=== PATIENT | female | born 1950 | race Caucasian/White ===

== ENCOUNTER 2017-02-01 14:07 | Inpatient (IN) ==
--- NOTE | 2017-02-01 14:10 | Emergency Department Note ---
Disposition Clinical Impression: Hypoxia, Abnormal EKG, NSTEMI (non-ST elevated myocardial infarction) Disposition: Admitted As Inpatient Referrals: Ivan Bruno DO [Primary Care Provider] - Forms: ED Satisfaction Letter General Adult HPI - General Chief complaint: ED Shortness of Breath/Dyspnea Stated complaint: SOB/syncope Time Seen by Provider: 02/01/17 14:09 - Related Data Home Medications Medication Instructions Recorded Confirmed Atorvastatin 02/01/17 Citalopram 02/01/17 Diclofenac Sodium 02/01/17 Gabapentin 02/01/17 02/01/17 Gemfibrozil 02/01/17 Triamterene-Hctz 50-25 mg Cap 02/01/17 Valsartan 02/01/17 Allergies Allergy/AdvReac Type Severity Reaction Status Date / Time acetaminophen [From [place]] Allergy Hallucinati Verified 02/01/17 13:11 ng hydrocodone [From [place]] Allergy Hallucinati Verified 02/01/17 13:11 ng Course Vital Signs Temperature 98.7 F 02/01/17 14:09 Pulse Rate 72 02/01/17 14:09 Respiratory Rate 18 02/01/17 14:09 Blood Pressure 205/119 02/01/17 14:09 O2 Sat by Pulse Oximetry 78 02/01/17 14:09 Temperature 98.7 F 02/01/17 14:09 Pulse Rate 59 02/01/17 15:59 Respiratory Rate 16 02/01/17 15:59 Blood Pressure 170/92 02/01/17 15:59 O2 Sat by Pulse Oximetry 93 02/01/17 15:59 Oxygen Delivery Oxygen Delivery Nasal Cannula Medical Decision Making - Lab Data Result diagrams: 02/01/17 14:32 02/01/17 14:32 Lab Results 02/01/17 02/01/17 02/01/17 Range/Units 14:32 14:32 14:32 WBC 8.6 (4.3-11.1) K/mcL RBC 5.76 H (3.82-4.97) M/mcL Hgb 16.9 H (11.5-15.4) g/dL Hct 51.4 H (35.3-44.9) % MCV 89.2 (83.0-100.0) fL MCH 29.3 (28.0-33.3) pg MCHC 32.9 (31.6-35.5) g/dL RDW 14.5 (11.5-14.5) % Plt Count 201 (140-400) K/mcL MPV 10.9 (9.4-12.4) fL Immature Gran % 0.2 (0-4) % Seg Neutrophils % 68.4 % Lymphocytes % 22.2 % Monocytes % 5.6 % Eosinophils % 3.0 % Basophils % 0.6 % Neutrophils # 5.9 (1.6-8.9) K/mcL Lymphocytes # 1.9 (0.6-4.6) K/mcL Monocytes # 0.5 (0.0-1.3) K/mcL Eosinophils # 0.3 (0.0-0.6) K/mcL Basophils # 0.1 (0.0-0.2) K/mcL PT (9.4-12.1) Seconds INR APTT (26.0-36.0) Seconds ABG pH (7.32-7.45) pH Units ABG pCO2 (35-45) mmHg ABG pO2 (85-104) mmHg ABG HCO3 (21-27) mEQ/L ABG Total CO2 (20-26) mEq/L ABG O2 Saturation (95-98) % ABG Base Excess (-2.0 to 3.0) mEq/L Liter Flow L/MIN Blood Gas Modality Sodium 146 H (136-145) mEq/L Potassium 3.1 L (3.5-4.5) mEq/L Chloride 107 (98-109) mEq/L Carbon Dioxide 28 (19-29) mEq/L BUN 19 (7-20) mg/dL Creatinine 0.77 (0.57-1.11) mg/dL Est GFR ( Amer) > 60 (> 60) Est GFR (Non-Af Amer) > 60 (> 60) BUN/Creatinine Ratio 25 (6-26) Glucose 112 H (70-99) mg/dL Calculated Osmolality 305 H (280-300) Calcium 9.0 (8.6-10.8) mg/dL Magnesium 1.7 (1.6-2.6) mg/dL Total Bilirubin 3.9 H (0.2-1.2) mg/dL Direct Bilirubin 1.0 H (0.0-0.5) mg/dL Indirect Bilirubin 2.9 H (0.0-1.2) mg/dL AST 16 (5-34) Units/L ALT 13 (0-55) Units/L Alkaline Phosphatase 70 (38-126) Units/L Troponin I 0.42 H* (0-0.03) ng/mL B-Natriuretic Peptide (0-100) pg/mL Serum Total Protein 6.6 (6.0-8.3) g/dL Albumin 3.7 (3.5-5.0) g/dL Globulin 2.9 (2.4-3.5) g/dL Albumin/Globulin Ratio 1.3 (1.1-2.2) Urine Color (Yellow) Urine Clarity (Clear) Urine pH (5.0-8.0) pH Units Ur Specific [place] (1.010-1.025) Urine Protein (Neg-Trace) mg/dL Urine Glucose (UA) (Normal) mg/dL Urine Ketones (Negative) mg/dL Urine Blood (Negative) Urine Nitrite (Negative) Urine Bilirubin (Negative) Urine Urobilinogen (Normal) mg/dL Ur Leukocyte Esterase (Negative) Urine Microscopic RBC (0-3) per hpf Urine Microscopic WBC (0-3) per hpf Ur Squamous Epith Cells (None-Few) per lpf Urine Bacteria (None-Few) per hpf Hyaline Casts (None-Few) per lpf 02/01/17 02/01/17 02/01/17 Range/Units 14:32 14:32 14:41 WBC (4.3-11.1) K/mcL RBC (3.82-4.97) M/mcL Hgb (11.5-15.4) g/dL Hct (35.3-44.9) % MCV (83.0-100.0) fL MCH (28.0-33.3) pg MCHC (31.6-35.5) g/dL RDW (11.5-14.5) % Plt Count (140-400) K/mcL MPV (9.4-12.4) fL Immature Gran % (0-4) % Seg Neutrophils % % Lymphocytes % % Monocytes % % Eosinophils % % Basophils % % Neutrophils # (1.6-8.9) K/mcL Lymphocytes # (0.6-4.6) K/mcL Monocytes # (0.0-1.3) K/mcL Eosinophils # (0.0-0.6) K/mcL Basophils # (0.0-0.2) K/mcL PT 13.0 H (9.4-12.1) Seconds INR 1.2 APTT 27.8 (26.0-36.0) Seconds ABG pH (7.32-7.45) pH Units ABG pCO2 (35-45) mmHg ABG pO2 (85-104) mmHg ABG HCO3 (21-27) mEQ/L ABG Total CO2 (20-26) mEq/L ABG O2 Saturation (95-98) % ABG Base Excess (-2.0 to 3.0) mEq/L Liter Flow L/MIN Blood Gas Modality Sodium (136-145) mEq/L Potassium (3.5-4.5) mEq/L Chloride (98-109) mEq/L Carbon Dioxide (19-29) mEq/L BUN (7-20) mg/dL Creatinine (0.57-1.11) mg/dL Est GFR ( Amer) (> 60) Est GFR (Non-Af Amer) (> 60) BUN/Creatinine Ratio (6-26) Glucose (70-99) mg/dL Calculated Osmolality (280-300) Calcium (8.6-10.8) mg/dL Magnesium (1.6-2.6) mg/dL Total Bilirubin (0.2-1.2) mg/dL Direct Bilirubin (0.0-0.5) mg/dL Indirect Bilirubin (0.0-1.2) mg/dL AST (5-34) Units/L ALT (0-55) Units/L Alkaline Phosphatase (38-126) Units/L Troponin I (0-0.03) ng/mL B-Natriuretic Peptide 305 H (0-100) pg/mL Serum Total Protein (6.0-8.3) g/dL Albumin (3.5-5.0) g/dL Globulin (2.4-3.5) g/dL Albumin/Globulin Ratio (1.1-2.2) Urine Color [place] A (Yellow) Urine Clarity Clear (Clear) Urine pH 5.5 (5.0-8.0) pH Units Ur Specific [place] > 1.030 H (1.010-1.025) Urine Protein >=300 H (Neg-Trace) mg/dL Urine Glucose (UA) Normal (Normal) mg/dL Urine Ketones 15 H (Negative) mg/dL Urine Blood Negative (Negative) Urine Nitrite Negative (Negative) Urine Bilirubin Moderate H (Negative) Urine Urobilinogen 2.0 H (Normal) mg/dL Ur Leukocyte Esterase Trace H (Negative) Urine Microscopic RBC 3-5 H (0-3) per hpf Urine Microscopic WBC 0-3 (0-3) per hpf Ur Squamous Epith Cells Many H (None-Few) per lpf Urine Bacteria None Seen (None-Few) per hpf Hyaline Casts None Seen (None-Few) per lpf 02/01/17 Range/Units 14:58 WBC (4.3-11.1) K/mcL RBC (3.82-4.97) M/mcL Hgb (11.5-15.4) g/dL Hct (35.3-44.9) % MCV (83.0-100.0) fL MCH (28.0-33.3) pg MCHC (31.6-35.5) g/dL RDW (11.5-14.5) % Plt Count (140-400) K/mcL MPV (9.4-12.4) fL Immature Gran % (0-4) % Seg Neutrophils % % Lymphocytes % % Monocytes % % Eosinophils % % Basophils % % Neutrophils # (1.6-8.9) K/mcL Lymphocytes # (0.6-4.6) K/mcL Monocytes # (0.0-1.3) K/mcL Eosinophils # (0.0-0.6) K/mcL Basophils # (0.0-0.2) K/mcL PT (9.4-12.1) Seconds INR APTT (26.0-36.0) Seconds ABG pH 7.45 (7.32-7.45) pH Units ABG pCO2 41 (35-45) mmHg ABG pO2 57 L (85-104) mmHg ABG HCO3 28.5 H (21-27) mEQ/L ABG Total CO2 29.8 H (20-26) mEq/L ABG O2 Saturation 91 L (95-98) % ABG Base Excess 4.1 H (-2.0 to 3.0) mEq/L Liter Flow 3 L/MIN Blood Gas Modality [place] Sodium (136-145) mEq/L Potassium (3.5-4.5) mEq/L Chloride (98-109) mEq/L Carbon Dioxide (19-29) mEq/L BUN (7-20) mg/dL Creatinine (0.57-1.11) mg/dL Est GFR ( Amer) (> 60) Est GFR (Non-Af Amer) (> 60) BUN/Creatinine Ratio (6-26) Glucose (70-99) mg/dL Calculated Osmolality (280-300) Calcium (8.6-10.8) mg/dL Magnesium (1.6-2.6) mg/dL Total Bilirubin (0.2-1.2) mg/dL Direct Bilirubin (0.0-0.5) mg/dL Indirect Bilirubin (0.0-1.2) mg/dL AST (5-34) Units/L ALT (0-55) Units/L Alkaline Phosphatase (38-126) Units/L Troponin I (0-0.03) ng/mL B-Natriuretic Peptide (0-100) pg/mL Serum Total Protein (6.0-8.3) g/dL Albumin (3.5-5.0) g/dL Globulin (2.4-3.5) g/dL Albumin/Globulin Ratio (1.1-2.2) Urine Color (Yellow) Urine Clarity (Clear) Urine pH (5.0-8.0) pH Units Ur Specific [place] (1.010-1.025) Urine Protein (Neg-Trace) mg/dL Urine Glucose (UA) (Normal) mg/dL Urine Ketones (Negative) mg/dL Urine Blood (Negative) Urine Nitrite (Negative) Urine Bilirubin (Negative) Urine Urobilinogen (Normal) mg/dL Ur Leukocyte Esterase (Negative) Urine Microscopic RBC (0-3) per hpf Urine Microscopic WBC (0-3) per hpf Ur Squamous Epith Cells (None-Few) per lpf Urine Bacteria (None-Few) per hpf Hyaline Casts (None-Few) per lpf Critical Care Time Critical Care Time: Yes Total Critical Care Time: 45 Attestation: Patient presented hypoxic. Critical care time involved ABG and lab interpretation. CT of chest. Initiation of IV heparin therapy. Admission to the medicine service. Attestation Statement - Attestation Attestation: I examined this patient and my medical decision-making was reviewed with the UNDERWATER ROBOTICIST/PA/Advanced Practice Nurse/Resident Physician. I agree with the documented findings, disposition and treatment plan as described except to the extent set forth below. [id number] time provided in conjunction with Dr. Moffett Patient arrives as a transfer from the urgent care with complaints of dyspnea. Pulse ox was 80% on room air at the urgent care. The patient appears generally weak on exam
--- NOTE | 2017-02-01 14:26 | Emergency Department Note ---
Disposition Clinical Impression: Hypoxia, Abnormal EKG, NSTEMI (non-ST elevated myocardial infarction) Pulmonary embolism Qualifiers: Pulmonary embolism type: other Chronicity: unspecified Acute cor pulmonale presence: without acute cor pulmonale Qualified Code(s): I26.99 - Other pulmonary embolism without acute cor pulmonale Disposition: Admitted As Inpatient Condition: Fair SOB HPI - General Chief Complaint: ED Shortness of Breath/Dyspnea Stated Complaint: SOB/syncope Time Seen by Provider: 02/01/17 14:09 Source: patient, EMS Mode of arrival: ambulatory Limitations: no limitations Nursing Notes Reviewed: Yes Vital Signs Reviewed: Yes - History of Present Illness 66-year-old female history of hypertension diabetes presents for evaluation of dyspnea from the urgent care. Patient has a history of the recent week of falling. This was an unwitnessed fall. Patient states that she tripped however family was concerned that she possibly passed out and had a syncopal episode. Patient does live with her son. Patient presented to urgent care prior to arrival with a granddaughter for concerns of a possible syncopal episode. At the urgent care the patient was found to be hypoxic with room air saturation in the 80s responded to oxygen. Patient states he does not wear oxygen at home. Patient denies any dyspnea or chest pain. No fevers. No cough. Patient denies any abdominal pain or nausea or vomiting. Patient does state that she has bilateral leg pains which are chronic. Denies any history of strokes. Reports that she has a history of blood pressure as well as diabetes. Daughter at bedside states that she feels that she does have slurred speech. No focal neurologic deficits. Patient's last known well was last week prior to when she fell. - Related Data Home Medications Medication Instructions Recorded Confirmed Atorvastatin Calcium [Lipitor] 20 mg PO DAILY 02/01/17 02/01/17 Diclofenac Sodium (24 HR) 100 mg PO DAILY 02/01/17 02/01/17 [Voltaren XR] Escitalopram [Lexapro] 10 mg PO BID 02/01/17 02/01/17 Fentanyl [Fentanyl] 1 patch TP Q72H 02/01/17 02/01/17 Gabapentin [Neurontin] 600 mg PO TID 02/01/17 02/01/17 Gemfibrozil [Lopid] 600 mg PO BID 02/01/17 02/01/17 GlyBURIDE [GlyBURIDE] 5 mg PO BID 02/01/17 02/01/17 Saxagliptin HCl/Metformin HCl 1 tab PO DAILY 02/01/17 02/01/17 [Kombiglyze Xr 2.5-1,000 mg Tab] Triamterene/Hydrochlorothiazid 1 tab PO QAM 02/01/17 02/01/17 [Triamterene-Hctz 75-50 mg Tab] Valsartan [Diovan] 160 mg PO DAILY 02/01/17 02/01/17 Allergies Allergy/AdvReac Type Severity Reaction Status Date / Time acetaminophen [From [place]] Allergy Hallucinati Verified 02/01/17 13:11 ng hydrocodone [From [place]] Allergy Hallucinati Verified 02/01/17 13:11 ng All systems ED: reviewed and negative except as stated. Constitutional: Reports: as per HPI. Denies: fever Eyes: Reports: as per HPI ENT ED: Reports: as per HPI Cardiovascular: Reports: as per HPI. Denies: chest pain Respiratory: Reports: as per HPI. Denies: cough, dyspnea Gastrointestinal: Reports: as per HPI. Denies: abdominal pain, nausea, vomiting Genitourinary: Reports: as per HPI Musculoskeletal: Reports: as per HPI Integumentary: Reports: as per HPI Neurological: Reports: as per HPI Psychiatric: Reports: as per HPI Past Medical History - Past Medical History Medical history: Reports: diabetes, hypertension, other Psychiatric history: Reports: anxiety, depression [employer] history: Reports: bilateral tubal ligation - Social History Smoking Status: Former smoker Alcohol use: Reports: none Drug use: Reports: none Physical Exam - General Limitations: no limitations General appearance: alert - Head Head exam: atraumatic, normocephalic, normal inspection - Eye Eye exam: Present: normal appearance, PERRL, EOMI - ENT ENT exam: normal exam, mucous membranes moist, other (Perioral cyanosis) - Neck Neck exam: Present: normal inspection, trachea midline - Chest Chest inspection: Present: normal inspection, symmetric chest wall rise - Respiratory Respiratory exam: Present: other (Diffusely diminished without rails crackles or rhonchi). Absent: respiratory distress, accessory muscle use - Cardiovascular Cardiovascular exam: Present: regular rate, normal rhythm. Absent: systolic murmur - Abdominal Exam Abdominal exam: Present: soft, Non-Tender - Extremities Exam Extremities exam: Present: normal inspection, pedal edema (1+ pedal edema bilaterally) - Expanded Lower Extremity Exam Neurovascular/Tendon exam: Present: normal capillary refill - Back Exam Back exam: Present: normal inspection. Absent: CVA tenderness (R), CVA tenderness (L) - Neurological Exam Neurological exam: Present: alert, oriented X3, CN II-XII intact - Expanded Neurological Exam Patient oriented to: Present: person, place, time Speech: Present: fluid speech Cranial nerves: EOM function (II, III, IV, ): Normal, facial sensation (V): Normal, facial palsy (VII): Normal, spinal accessory function (XI): Normal, tongue deviation (XII): Normal Motor strength - LUE: 5/5 Motor strength - RUE: 5/5 Motor strength - LLE: 5/5 Motor strength - RLE: 5/5 Coma Scale Eye Opening: Spontaneous Coma Scale Motor Response: Obeys Commands Coma Scale Verbal Response: Oriented Coma Scale Total: 15 - Skin Skin exam: Present: warm, dry, intact, normal color Course Course Narrative: Patient seen and examined upon EMS arrival. Patient's vitals are stable with supplemental oxygen. Patient does not appear to be in any acute respiratory distress. Not tachypnea. Patient did have room air oxygen saturation of 78%. Patient does have some perioral cyanosis without significantly diminished lung exam. Patient's EKG from the outlying urgent care shows sinus with a normal rate with T-wave inversions in leads 3 aVF and V1 V2 and V3 with no ST elevation. Concerns for cardiopulmonary etiology. She will get a cardiopulmonary evaluation concerns for PE. Patient with a CTA of the chest as well as a cardiac evaluation with EKG and troponin. Patient had basic lab work. Also CT of the head as she did have a possible single episode with no notable slurred speech by family. - Reevaluation(s) Reevaluation #1: It was noted the patient did have 50mcg fentanyl patches x 2 on her buttock. Those were removed. Time: 14:56 Reevaluation #2: Patient troponin came back elevated. Patient doesn't have chest pain. Treated with Given ASA. Patient blood pressure will be treated with nitroglycerin. Time: 15:04 Reevaluation #3: Seen and reevaluated. Patient continues to deny any chest pain. Patient was given 1 sublingual nitroglycerin to help reduce her blood pressure. Patient's blood pressure responded. Extensive conversation with the patient as well as family at bedside outlining the plan of care. Time: 16:10 - Consultations Consultation #1: Spoke with cardiology who agreed with plan of care with the addition of adding Brilinta. Time: 17:09 Vital Signs Temperature 98.7 F 02/01/17 14:09 Pulse Rate 72 02/01/17 14:09 Respiratory Rate 18 02/01/17 14:09 Blood Pressure 205/119 02/01/17 14:09 O2 Sat by Pulse Oximetry 78 02/01/17 14:09 Temperature 98.7 F 02/01/17 14:09 Pulse Rate 59 02/01/17 15:59 Respiratory Rate 18 02/01/17 16:47 Blood Pressure 169/102 02/01/17 16:47 O2 Sat by Pulse Oximetry 93 02/01/17 15:59 Oxygen Delivery Oxygen Delivery Nasal Cannula Shortness of Breath/Dyspnea - MDM Narrative Medical decision making narrative: 66-year-old female presents for evaluation from the urgent care. Patient denies any cardiac history but has known history of hypertension diabetes. Patient had an unwitnessed fall week ago possible syncope. Daughter was concerned and brought the patient to urgent care today. Urgent care found the patient to be hypoxic with EKG changes. These changes were verified with our EKG upon arrival. Patient has T-wave inversions in leads V1 through 3 as well as inferior 3 and aVF with isolated ST elevation in aVL. Patient is not complaining of any chest pain. Patient troponin came back elevated. Patient was given aspirin and heparinized. This was also discussed with the linoleum mechanic who stated that we could possibly add Brilinta. The patient responded to supplement oxygen. Patient also had a CT of the chest concerns for PE. Patient's CTA shows a suspected subsegmental right middle lobe PE. Patient's heparin was changed to standard dose heparin. Patient's blood pressure was addressed with nitroglycerin and responded. Patient's head CT shows no acute changes. Patient was neurovascularly intact. Had a lengthy discussion with the patient as well as family at bedside and outlined a plan of care. - Lab Data Lab results reviewed: Yes I reviewed the patient's lab results. Result diagrams: 02/01/17 14:32 02/01/17 14:32 Lab Results 02/01/17 02/01/17 02/01/17 Range/Units 14:32 14:32 14:32 WBC 8.6 (4.3-11.1) K/mcL RBC 5.76 H (3.82-4.97) M/mcL Hgb 16.9 H (11.5-15.4) g/dL Hct 51.4 H (35.3-44.9) % MCV 89.2 (83.0-100.0) fL MCH 29.3 (28.0-33.3) pg MCHC 32.9 (31.6-35.5) g/dL RDW 14.5 (11.5-14.5) % Plt Count 201 (140-400) K/mcL MPV 10.9 (9.4-12.4) fL Immature Gran % 0.2 (0-4) % Seg Neutrophils % 68.4 % Lymphocytes % 22.2 % Monocytes % 5.6 % Eosinophils % 3.0 % Basophils % 0.6 % Neutrophils # 5.9 (1.6-8.9) K/mcL Lymphocytes # 1.9 (0.6-4.6) K/mcL Monocytes # 0.5 (0.0-1.3) K/mcL Eosinophils # 0.3 (0.0-0.6) K/mcL Basophils # 0.1 (0.0-0.2) K/mcL PT (9.4-12.1) Seconds INR APTT (26.0-36.0) Seconds ABG pH (7.32-7.45) pH Units ABG pCO2 (35-45) mmHg ABG pO2 (85-104) mmHg ABG HCO3 (21-27) mEQ/L ABG Total CO2 (20-26) mEq/L ABG O2 Saturation (95-98) % ABG Base Excess (-2.0 to 3.0) mEq/L Liter Flow L/MIN Blood Gas Modality Sodium 146 H (136-145) mEq/L Potassium 3.1 L (3.5-4.5) mEq/L Chloride 107 (98-109) mEq/L Carbon Dioxide 28 (19-29) mEq/L BUN 19 (7-20) mg/dL Creatinine 0.77 (0.57-1.11) mg/dL Est GFR ( Amer) > 60 (> 60) Est GFR (Non-Af Amer) > 60 (> 60) BUN/Creatinine Ratio 25 (6-26) Glucose 112 H (70-99) mg/dL Calculated Osmolality 305 H (280-300) Calcium 9.0 (8.6-10.8) mg/dL Magnesium 1.7 (1.6-2.6) mg/dL Total Bilirubin 3.9 H (0.2-1.2) mg/dL Direct Bilirubin 1.0 H (0.0-0.5) mg/dL Indirect Bilirubin 2.9 H (0.0-1.2) mg/dL AST 16 (5-34) Units/L ALT 13 (0-55) Units/L Alkaline Phosphatase 70 (38-126) Units/L Troponin I 0.42 H* (0-0.03) ng/mL B-Natriuretic Peptide (0-100) pg/mL Serum Total Protein 6.6 (6.0-8.3) g/dL Albumin 3.7 (3.5-5.0) g/dL Globulin 2.9 (2.4-3.5) g/dL Albumin/Globulin Ratio 1.3 (1.1-2.2) Urine Color (Yellow) Urine Clarity (Clear) Urine pH (5.0-8.0) pH Units Ur Specific [place] (1.010-1.025) Urine Protein (Neg-Trace) mg/dL Urine Glucose (UA) (Normal) mg/dL Urine Ketones (Negative) mg/dL Urine Blood (Negative) Urine Nitrite (Negative) Urine Bilirubin (Negative) Urine Urobilinogen (Normal) mg/dL Ur Leukocyte Esterase (Negative) Urine Microscopic RBC (0-3) per hpf Urine Microscopic WBC (0-3) per hpf Ur Squamous Epith Cells (None-Few) per lpf Urine Bacteria (None-Few) per hpf Hyaline Casts (None-Few) per lpf 02/01/17 02/01/17 02/01/17 Range/Units 14:32 14:32 14:41 WBC (4.3-11.1) K/mcL RBC (3.82-4.97) M/mcL Hgb (11.5-15.4) g/dL Hct (35.3-44.9) % MCV (83.0-100.0) fL MCH (28.0-33.3) pg MCHC (31.6-35.5) g/dL RDW (11.5-14.5) % Plt Count (140-400) K/mcL MPV (9.4-12.4) fL Immature Gran % (0-4) % Seg Neutrophils % % Lymphocytes % % Monocytes % % Eosinophils % % Basophils % % Neutrophils # (1.6-8.9) K/mcL Lymphocytes # (0.6-4.6) K/mcL Monocytes # (0.0-1.3) K/mcL Eosinophils # (0.0-0.6) K/mcL Basophils # (0.0-0.2) K/mcL PT 13.0 H (9.4-12.1) Seconds INR 1.2 APTT 27.8 (26.0-36.0) Seconds ABG pH (7.32-7.45) pH Units ABG pCO2 (35-45) mmHg ABG pO2 (85-104) mmHg ABG HCO3 (21-27) mEQ/L ABG Total CO2 (20-26) mEq/L ABG O2 Saturation (95-98) % ABG Base Excess (-2.0 to 3.0) mEq/L Liter Flow L/MIN Blood Gas Modality Sodium (136-145) mEq/L Potassium (3.5-4.5) mEq/L Chloride (98-109) mEq/L Carbon Dioxide (19-29) mEq/L BUN (7-20) mg/dL Creatinine (0.57-1.11) mg/dL Est GFR ( Amer) (> 60) Est GFR (Non-Af Amer) (> 60) BUN/Creatinine Ratio (6-26) Glucose (70-99) mg/dL Calculated Osmolality (280-300) Calcium (8.6-10.8) mg/dL Magnesium (1.6-2.6) mg/dL Total Bilirubin (0.2-1.2) mg/dL Direct Bilirubin (0.0-0.5) mg/dL Indirect Bilirubin (0.0-1.2) mg/dL AST (5-34) Units/L ALT (0-55) Units/L Alkaline Phosphatase (38-126) Units/L Troponin I (0-0.03) ng/mL B-Natriuretic Peptide 305 H (0-100) pg/mL Serum Total Protein (6.0-8.3) g/dL Albumin (3.5-5.0) g/dL Globulin (2.4-3.5) g/dL Albumin/Globulin Ratio (1.1-2.2) Urine Color [place] A (Yellow) Urine Clarity Clear (Clear) Urine pH 5.5 (5.0-8.0) pH Units Ur Specific [place] > 1.030 H (1.010-1.025) Urine Protein >=300 H (Neg-Trace) mg/dL Urine Glucose (UA) Normal (Normal) mg/dL Urine Ketones 15 H (Negative) mg/dL Urine Blood Negative (Negative) Urine Nitrite Negative (Negative) Urine Bilirubin Moderate H (Negative) Urine Urobilinogen 2.0 H (Normal) mg/dL Ur Leukocyte Esterase Trace H (Negative) Urine Microscopic RBC 3-5 H (0-3) per hpf Urine Microscopic WBC 0-3 (0-3) per hpf Ur Squamous Epith Cells Many H (None-Few) per lpf Urine Bacteria None Seen (None-Few) per hpf Hyaline Casts None Seen (None-Few) per lpf 02/01/17 Range/Units 14:58 WBC (4.3-11.1) K/mcL RBC (3.82-4.97) M/mcL Hgb (11.5-15.4) g/dL Hct (35.3-44.9) % MCV (83.0-100.0) fL MCH (28.0-33.3) pg MCHC (31.6-35.5) g/dL RDW (11.5-14.5) % Plt Count (140-400) K/mcL MPV (9.4-12.4) fL Immature Gran % (0-4) % Seg Neutrophils % % Lymphocytes % % Monocytes % % Eosinophils % % Basophils % % Neutrophils # (1.6-8.9) K/mcL Lymphocytes # (0.6-4.6) K/mcL Monocytes # (0.0-1.3) K/mcL Eosinophils # (0.0-0.6) K/mcL Basophils # (0.0-0.2) K/mcL PT (9.4-12.1) Seconds INR APTT (26.0-36.0) Seconds ABG pH 7.45 (7.32-7.45) pH Units ABG pCO2 41 (35-45) mmHg ABG pO2 57 L (85-104) mmHg ABG HCO3 28.5 H (21-27) mEQ/L ABG Total CO2 29.8 H (20-26) mEq/L ABG O2 Saturation 91 L (95-98) % ABG Base Excess 4.1 H (-2.0 to 3.0) mEq/L Liter Flow 3 L/MIN Blood Gas Modality [place] Sodium (136-145) mEq/L Potassium (3.5-4.5) mEq/L Chloride (98-109) mEq/L Carbon Dioxide (19-29) mEq/L BUN (7-20) mg/dL Creatinine (0.57-1.11) mg/dL Est GFR ( Amer) (> 60) Est GFR (Non-Af Amer) (> 60) BUN/Creatinine Ratio (6-26) Glucose (70-99) mg/dL Calculated Osmolality (280-300) Calcium (8.6-10.8) mg/dL Magnesium (1.6-2.6) mg/dL Total Bilirubin (0.2-1.2) mg/dL Direct Bilirubin (0.0-0.5) mg/dL Indirect Bilirubin (0.0-1.2) mg/dL AST (5-34) Units/L ALT (0-55) Units/L Alkaline Phosphatase (38-126) Units/L Troponin I (0-0.03) ng/mL B-Natriuretic Peptide (0-100) pg/mL Serum Total Protein (6.0-8.3) g/dL Albumin (3.5-5.0) g/dL Globulin (2.4-3.5) g/dL Albumin/Globulin Ratio (1.1-2.2) Urine Color (Yellow) Urine Clarity (Clear) Urine pH (5.0-8.0) pH Units Ur Specific [place] (1.010-1.025) Urine Protein (Neg-Trace) mg/dL Urine Glucose (UA) (Normal) mg/dL Urine Ketones (Negative) mg/dL Urine Blood (Negative) Urine Nitrite (Negative) Urine Bilirubin (Negative) Urine Urobilinogen (Normal) mg/dL Ur Leukocyte Esterase (Negative) Urine Microscopic RBC (0-3) per hpf Urine Microscopic WBC (0-3) per hpf Ur Squamous Epith Cells (None-Few) per lpf Urine Bacteria (None-Few) per hpf Hyaline Casts (None-Few) per lpf - Radiology Data Radiology results reviewed: Yes I reviewed the patient's radiology results. Chest X-Ray 02/01/17 14:20 IMPRESSION: Findings as above likely due to mild congestive heart failure. D/ / Pao Chairez MD / Pao Chairez MD Interpreting Provider: Pao Chairez MD Head CT 02/01/17 14:22 IMPRESSION: No acute intracranial abnormality. D/ / Jong Howell MD / Jong Howell MD Interpreting Provider: Jong Howell MD Chest X-Ray 02/01/17 14:20 IMPRESSION: Findings as above likely due to mild congestive heart failure. D/ / Pao Chairez MD / Pao Chairez MD Interpreting Provider: Pao Chairez MD Chest CTA 02/01/17 14:22 IMPRESSION: 1. Questionable filling defect in a single segmental branch of the right middle lobe however exam is somewhat limited throughout the lungs due to respiratory motion in the segmental and subsegmental branches. An acute pulmonary embolus cannot be entirely excluded. No other pulmonary embolus is otherwise identified. 2. Dilated main pulmonary artery suggestive of pulmonary arterial hypertension. Patchy areas of ground-glass attenuation with mild interlobular septal thickening and a small amount of contrast into the IVC and hepatic veins. Findings may be related to right-sided heart failure in the appropriate clinical setting. 3. Mild cardiomegaly. Critical results were called by Dr. Amanda Kuhn MD to Gustavo Moffett on 02/01/2017 at 16:21. D/ / 02/01/2017 16:28:58 Amanda Kuhn MD / jose Interpreting Provider: Amanda Kuhn MD Head CT 02/01/17 14:22 IMPRESSION: No acute intracranial abnormality. D/ / Jong Howell MD / Jong Howell MD Interpreting Provider: Jong Howell MD - EKG Data EKG attestation: Yes I reviewed and interpreted this EKG. EKG shows normal: Reports: sinus rhythm Rate: Reports: normal Rhythm: Reports: NSR ST segment elevation in: Reports: aVL (isolated) T wave inversions noted in: Reports: III, aVF, v1, v2, v3 When compared to previous EKG there are: changes noted Interpretation: Reports: nonspecific ST-T wave changes S.B.ARicardo - S.B.ACarmelRCarmel Situation: Demographics Background: Presenting Complaint Assessment: Vital Signs Recommendation: Barrier(s) to disposition, Recommendation based on pending studies, treatments, or consults S.B.ARicardo Report Given to: Dr. Aydee Pryor Repor Time: 16:32
[2017-02-01] MEDS ORDERED: 0.9 % Sodium Chloride 1,000 ML IVC ONE (14:27)
[2017-02-01 14:38] LABS: Basophils # 0.1 K/mcL (0.0-0.2); Basophils % 0.6 %; Eosinophils # 0.3 K/mcL (0.0-0.6); Hematocrit 51.4 % (35.3-44.9); Hemoglobin 16.9 g/dL (11.5-15.4); Immature Granulocytes % 0.2 % (0-4); Lymphocytes # 1.9 K/mcL (0.6-4.6); Lymphocytes % 22.2 %; Mean Corpuscular HGB Conc 32.9 g/dL (31.6-35.5); Mean Corpuscular Hemoglobin 29.3 pg (28.0-33.3); Mean Corpuscular Volume 89.2 fL (83.0-100.0); Mean Platelet Volume 10.9 fL (9.4-12.4); Monocytes # 0.5 K/mcL (0.0-1.3); Monocytes % 5.6 %; Neutrophils # 5.9 K/mcL (1.6-8.9); Platelet Count 201 K/mcL (140-400); Red Blood Count 5.76 M/mcL (3.82-4.97); Red Cell Distribution Width 14.5 % (11.5-14.5); Segmented Neutrophils % 68.4 %
[2017-02-01 14:52] LABS: Bilirubin,Urine Moderate (Negative); Blood,Urine Negative (Negative); Clarity,Urine Clear (Clear); Color,Urine Orange (Yellow); Glucose,Urine (UA) Normal (Normal); Ketones,Urine 15 mg/dL (Negative); Leukocyte Esterase,Urine Trace (Negative); Nitrite,Urine Negative (Negative); PH,Urine 5.5 pH Units (5.0-8.0); Protein,Urine >=300 mg/dL (Neg-Trace); Specific Gravity,Urine > 1.030 (1.010-1.025)
[2017-02-01 14:54] LABS: Alanine Aminotransferase 13 Units/L (0-55); Albumin 3.7 g/dL (3.5-5.0); Albumin/Globulin Ratio 1.3 (1.1-2.2); Alkaline Phosphatase 70 Units/L (38-126); Aspartate Amino Transferase 16 Units/L (5-34); BUN/Creatinine Ratio 25 (6-26); Bilirubin,Indirect 2.9 mg/dL (0.0-1.2); Bilirubin,Total 3.9 mg/dL (0.2-1.2); Blood Urea Nitrogen 19 mg/dL (7-20); Carbon Dioxide 28 mEq/L (19-29); Chloride 107 mEq/L (98-109); Globulin 2.9 g/dL (2.4-3.5); Glucose 112 mg/dL (70-99); Osmolality,Calculated 305 (280-300); Potassium 3.1 mEq/L (3.5-4.5); Sodium 146 mEq/L (136-145); Total Protein 6.6 g/dL (6.0-8.3); eGFR For African Americans > 60 (> 60); eGFR For Non-African Americans > 60 (> 60)
[2017-02-01 14:55] LABS: Bacteria,Urine None Seen per hpf (None-Few); Hyaline Casts,Urine None Seen per lpf (None-Few); Squamous Epithelial Cell,Urine Many per lpf (None-Few); WBC,Urine 0-3 per hpf (0-3)
[2017-02-01] MEDS ORDERED: Aspirin 81 MG TAB.CHEW PO ONE (15:04)
[2017-02-01] MEDS ORDERED: Nitroglycerin 0.4 MG TAB.SUBL SL ONE (15:09)
[2017-02-01 15:14] LABS: INR 1.2
[2017-02-01 15:16] LABS: Activated Partial Thrombo Time 27.8 Seconds (26.0-36.0)
[2017-02-01 15:17] LABS: Magnesium 1.7 mg/dL (1.6-2.6)
[2017-02-01 15:18] LABS: ABG Base Excess 4.1 mEq/L (-2.0 to 3.0); ABG HCO3 28.5 mEQ/L (21-27); ABG Oxygen Saturation 91 % (95-98); ABG PCO2 41 mmHg (35-45); ABG PH 7.45 pH Units (7.32-7.45); ABG PO2 57 mmHg (85-104); ABG TCO2 29.8 mEq/L (20-26); Blood Gas Liter Flow 3 L/MIN
[2017-02-01] MEDS ORDERED: *HR* Heparin 5,000 UNIT/ML VIAL IVP ONE ×3 (15:41→16:45)
[2017-02-01] MEDS ORDERED: Heparin 25,000 UNIT/500 ML D5W 25,000 UNIT/500 ML MLS IVC SCH (15:45)
[2017-02-01] MEDS ORDERED: *HR* Heparin 5,000 UNIT/ML VIAL IVP PRN ×2 (16:26)
[2017-02-01] MEDS: Heparin 25,000 UNIT/500 ML D5W 25,000 UNIT/500 ML MLS IVC SCH (16:36)
[2017-02-01] MEDS ORDERED: *HR* Ticagrelor 90 MG TABLET PO ONE (17:07)
--- NOTE | 2017-02-01 17:51 | Internal Med History&Physical ---
Date of Encounter: 02/01/17 Time of Encounter: 17:48 Assessment and Plan (1) SOB (shortness of breath) Current visit: No Status: Acute she does not appear to be sob at rest,sating 93% on 3l. unclear if she had passed out when she fell as she says she does not remember anything and is a poor historian. at urgent care today she was found to be sating at 80s. CTA shows questionable segmental branch fillling defect, alos has elevated trop. given her sedentary lifestyle and the hypoxia with possible syncopal episode, will treat as PE for now. however, will trend trop, will also need to rule out ACS as well though she does not have any chest pain. will also order ECHO (2) NSTEMI (non-ST elevated myocardial infarction) Current visit: Yes Status: Acute elevated trop, no chest pain has some T wave changes. could be 2/2 PE , have to r/o ACS will trend trop, order ECHO. cardiology consult. started on heparin drip. (3) Pulmonary embolism Current visit: Yes Status: Acute as above. possible segmental PE. initially hypoxic, currently hemodynamically stable. Qualifiers: Pulmonary embolism type: other Chronicity: unspecified Acute cor pulmonale presence: without acute cor pulmonale Qualified Code(s): I26.99 - Other pulmonary embolism without acute cor pulmonale (4) HTN (hypertension) Current visit: Yes Status: Acute Qualifiers: Hypertension type: essential hypertension Qualified Code(s): I10 - Essential (primary) hypertension (5) Diabetes Current visit: Yes Status: Acute Qualifiers: Diabetes mellitus type: type 2 Qualified Code(s): E11.9 - Type 2 diabetes mellitus without complications Internal Medicine - H&P: HPI Chief complaint: sob Admitted From: Home Plans for Post Hospital Care: Home History of present illness: Ms. Gomez is a 66 year old female with history of hypertension, diabetes presents for evaluation of dyspnea from the urgent care. Patient has a history of fall 4 days ago. This was an unwitnessed fall. Patient states that she tripped however family was concerned that she possibly passed out and had a syncopal episode. Patient does live with her son. Patient presented to urgent care prior to arrival with a granddaughter for concerns of a possible syncopal episode. At the urgent care the patient was found to be hypoxic with room air saturation in the 80s responded to oxygen. Patient states he does not wear oxygen at home. Patient denies any dyspnea or chest pain. No fevers. No cough. Patient denies any abdominal pain or nausea or vomiting. Patient does state that she has bilateral leg pains which are chronic. Denies any history of strokes. Reports that she has a history of blood pressure as well as diabetes. No focal neurologic deficits. Patient's last known well was last week prior to when she fell. The son at the bedside says that she is still mourning her 's that was 2 yrs ago and she lives a very sedentary life style and he believes that her symptoms are from her being deconditioned and not being active. At the time of my assessment, she denies any shortness of breath or chest pain. Past Med Surg Social Fam HX - Past Medical History Medical history: diabetes, hypertension, other Psychiatric history: anxiety, depression - Social History Smoking Status: Former smoker Alcohol use: none Drug use: none Internal Medicine - H&P: Meds Atorvastatin Calcium [Lipitor] 20 mg PO DAILY 02/01/17 [History] Diclofenac Sodium (24 HR) [Voltaren XR] 100 mg PO DAILY 02/01/17 [History] Escitalopram [Lexapro] 10 mg PO BID 02/01/17 [History] Fentanyl [Fentanyl] 1 patch TP Q72H 02/01/17 [History] Gabapentin [Neurontin] 600 mg PO TID 02/01/17 [History] Gemfibrozil [Lopid] 600 mg PO BID 02/01/17 [History] GlyBURIDE [GlyBURIDE] 5 mg PO BID 02/01/17 [History] Saxagliptin HCl/Metformin HCl [Kombiglyze Xr 2.5-1,000 mg Tab] 1 tab PO DAILY [History] Triamterene/Hydrochlorothiazid [Triamterene-Hctz 75-50 mg Tab] 1 tab PO QAM [History] Valsartan [Diovan] 160 mg PO DAILY 02/01/17 [History] Allergies acetaminophen [From [place]] Allergy (Verified 02/01/17 13:11) Hallucinating hydrocodone [From [place]] Allergy (Verified 02/01/17 13:11) Hallucinating All Systems PM: A 10-system review of systems was performed and is negative for pertinent findings except as documented above in the HPI. - Constitutional Vitals: Temp Pulse Resp BP Pulse Ox 98.7 F 59 18 169/102 93 02/01/17 14:09 02/01/17 15:59 02/01/17 16:47 02/01/17 16:47 02/01/17 15:59 General appearance: Present: A&O X 3, no acute distress Exam: neck- supple chest -b/l clear, no added sounds cvs-s1 and s2, no mr/g/ abd- soft, non tender, bs are present ext- no edema Internal Med - H&P Results - Labs CBC & Chem 7: 02/01/17 14:32 02/01/17 14:32
[2017-02-01] MEDS ORDERED: Naloxone 0.4 MG/ML INJ IVP PRN (18:49)
[2017-02-01] MEDS ORDERED: D5% in Water 1,000 ML IVC PRN (18:54)
[2017-02-01] MEDS ORDERED: Dextrose Gel 15 GM PO PRN ×2 (18:54)
[2017-02-01] MEDS ORDERED: *HR* Dextrose 50 % in Water (Syg) 50 ML SYRINGE IVP PRN (18:54)
[2017-02-01] MEDS: Valsartan 160 MG TABLET PO SCH (19:36)
[2017-02-01] MEDS: Gabapentin 300 MG CAPSULE PO SCH (19:36)
[2017-02-01] MEDS: *HR* LORazepam 2 MG/ML VIAL IVP PRN ×2 (19:36→22:44)
[2017-02-01] MEDS: Insulin LISPRO 300 UNITS/3 ML VIAL SQ SCH (22:41)
[2017-02-01] MEDS ORDERED: hydrOXYzine pamoate 25 MG CAPSULE PO ONE (23:47)
[2017-02-02 05:20] LABS: Basophils % 0.5 %; Eosinophils # 0.3 K/mcL (0.0-0.6); Hematocrit 47.9 % (35.3-44.9); Hemoglobin 15.7 g/dL (11.5-15.4); Immature Granulocytes % 0.4 % (0-4); Lymphocytes # 1.6 K/mcL (0.6-4.6); Lymphocytes % 18.8 %; Mean Corpuscular HGB Conc 32.8 g/dL (31.6-35.5); Mean Corpuscular Hemoglobin 29.2 pg (28.0-33.3); Mean Platelet Volume 11.3 fL (9.4-12.4); Monocytes # 0.5 K/mcL (0.0-1.3); Monocytes % 6.1 %; Platelet Count 183 K/mcL (140-400); Red Blood Count 5.38 M/mcL (3.82-4.97); Red Cell Distribution Width 14.4 % (11.5-14.5); Segmented Neutrophils % 70.2 %
[2017-02-02] MEDS: *HR* LORazepam 2 MG/ML VIAL IVP PRN ×3 (05:26→19:42)
[2017-02-02 05:35] LABS: BUN/Creatinine Ratio 22 (6-26); Blood Urea Nitrogen 15 mg/dL (7-20); Calcium 8.9 mg/dL (8.6-10.8); Carbon Dioxide 24 mEq/L (19-29); Chloride 104 mEq/L (98-109); Glucose 121 mg/dL (70-99); Magnesium 1.4 mg/dL (1.6-2.6); Osmolality,Calculated 294 (280-300); Phosphorous 2.8 mg/dL (2.3-4.7); Potassium 3.3 mEq/L (3.5-4.5); Sodium 141 mEq/L (136-145); eGFR For African Americans > 60 (> 60); eGFR For Non-African Americans > 60 (> 60)
[2017-02-02] MEDS: Insulin LISPRO 300 UNITS/3 ML VIAL SQ SCH ×4 (08:00→19:43)
[2017-02-02] MEDS: Gabapentin 300 MG CAPSULE PO SCH ×3 (09:39→19:43)
[2017-02-02] MEDS: Valsartan 160 MG TABLET PO SCH (09:39)
--- NOTE | 2017-02-02 10:17 | ECHO - Doppler Report ---
Echocardiogram Name: Veronica Gomez Date of Study: 02/02/2017 Date: 1950 Ht: 63.0 in Medical Record#: [id number] Age: 66 Wt: 197.0 lb Gender: Female BSA: 1.92 Order #: [id number] Location: [facility] Room #: 2NE35 Reading Physician: Miguel Tirado MD, [facility] Toppiece Chopper: Sierra Andrews RVT, [facility] Ordering Physician: Esther Bajwa MD Primary Physician: Ivan Bruno DO Indications: NStemi Impressions: LVEF 55-60%. Mild left ventricular diastolic dysfunction. Mild concentric left ventricular hypertrophy. No significant valvular dysfunction. Left Ventricular Wall Motion: Rest Echo Findings All wall segments showed normal motion. Findings: Study Quality * Technically adequate exam. Right Ventricle * Normal right ventricular structure and function. Left Atrium * Normal left atrial size. Right Atrium * Normal right atrial size. Interatrial Septum * No evidence of PFO by color Doppler. Aorta * Normally sized aortic root. ECG Findings * Normal sinus rhythm. Tricuspid Valve * Trace tricuspid regurgitation. * No tricuspid stenosis. * Unable to estimate RVSP due to lack of TR jet. Pulmonic Valve * Pulmonic valve is not well visualized. * No pulmonic stenosis. * No pulmonic regurgitation. Pericardium * There is a trivial pericardial effusion present. Mitral Valve * Normal mitral valve structure. * Trace mitral regurgitation. * No mitral stenosis. Left Ventricle * Mild left ventricular diastolic dysfunction. * Mild concentric left ventricular hypertrophy. * LVEF 55-60%. Aortic Valve * Mildly sclerotic aortic valve leaflets. * No aortic regurgitation. * No aortic stenosis. * Normal aortic valve structure. * Trileaflet aortic valve. IVC * The IVC is dilated. * < 50% respiratory change. History Diabetes Myocardial Infarction Measurements: BP: 161/ 101 2D Normal Values RVIDd: 3.52 cm <2.7 cm IVSd: 1.31 cm 0.6 - 1.0 cm LVIDd: 4.06 cm 3.7 - 5.6 cm LVPWd: 1.29 cm 0.6 - 1.1 cm LVIDs: 2.82 cm 1.5 - 3.6 cm AO: 2.90 cm < 4.0 cm LA: 3.50 cm 2.0 - 4.0cm %FS: 30.50 cm >25 % LVOT Diam: 2.00 cm LA volume: 37 Mitral Valve Peak E:.60 m/sec Peak A:.82 m/sec E/A Ratio:0.7 Peak E' Lat Wilver:5.87 cm/s Peak E' Med Wilver:4.47 cm/s E/E' Lat Ratio:10.2 E/E' Med Ratio:13.4 Aortic Valve Peak Wilver:1.37 m/sec Mean Wilver:1.07 m/sec Peak Grad:8.00 mmHg Mean Grad:5.00 mmHg Updated by Miguel Tirado MD, FACC on 02/02/2017 10:10:46 AM electronically signed on 02/02/2017 10:11:20 AM with status of Final Wall Motion Torres: 1=Normal, 2=Hypokinesis, 3=Akinesis, 4=Dyskinesis, 5=Aneurysmal, 6=Hyperkinetic, X=Not Visualized (Blank)=Missing
--- NOTE | 2017-02-02 10:32 | Internal Med Progress Note ---
<Catherine Lockett - Last Filed: 02/02/17 11:15> Date of Encounter: 02/02/17 Time of Encounter: 10:26 - Assessment and plan (1) Pulmonary embolism Current Visit: Yes Status: Acute Assessment and plan: Denies shortness of breath at rest; however, needing supplemental oxygen to maintain oxygen saturation greater than 90%. Elevated troponin with peak 0.48. Denies chest pain. Echo results pending. Heparin drip. Qualifiers: Pulmonary embolism type: other Chronicity: unspecified Acute cor pulmonale presence: without acute cor pulmonale Qualified Code(s): I26.99 - Other pulmonary embolism without acute cor pulmonale (2) Acute respiratory failure with hypoxia Current Visit: Yes Status: Acute Assessment and plan: due to pulmonary embolus Continue supplemental oxygen (does not use oxygen at home) Satting 95% on 3 L (3) Acute encephalopathy Current Visit: Yes Status: Acute Assessment and plan: Confusion, agitation, flight of ideas/easy distractibility Patient's granddaughter states recent since her fall Patient had 50mcg fentanyl patches x 2 on her buttock that were removed in the ED. Neurology consult, appreciate recommendations PT, OT, social work consult for Friday morning; appreciate recommendations (4) DVT (deep venous thrombosis) Current Visit: Yes Status: Suspected Assessment and plan: Suspect DVT in left leg Venous Doppler ordered to be completed tomorrow morning due to it being Friday and already being anticoagulated on heparin due to PE Qualifiers: DVT location: lower extremity Laterality: left Chronicity: acute Qualified Code(s): I82.402 - Acute embolism and thrombosis of unspecified deep veins of left lower extremity (5) HTN (hypertension) Current Visit: Yes Status: Chronic Assessment and plan: Elevated at 160/100 this morning start lisinopril 20 mg hydralzine 10 mg q6 PRN continue home medications Qualifiers: Hypertension type: essential hypertension Qualified Code(s): I10 - Essential (primary) hypertension (6) Diabetes Current Visit: Yes Status: Chronic Assessment and plan: accuchecks and sliding scale Qualifiers: Diabetes mellitus type: type 2 Diabetes mellitus complication status: with neurologic complications Diabetes mellitus complication detail: with polyneuropathy Diabetes mellitus shelter insulin use: without shelter use Qualified Code(s): E11.42 - Type 2 diabetes mellitus with diabetic polyneuropathy - Subjective Interval history: Patient seen and examined. Confused, agitated, yet appears to be answering questions appropriately. Asking for pants and a pencil and paper. - Constitutional Vitals: Temp Pulse Resp BP Pulse Ox 97.7 F 57 18 151/108 95 02/02/17 07:00 02/02/17 10:14 02/02/17 10:14 02/02/17 10:14 02/02/17 10:14 General appearance: Present: A&O X 3, no acute distress, obese - Head Head exam: Present: atraumatic, normocephalic - Eye Eye exam: Present: PERRL, conjuntiva pink, sclera anicteric Pupils: Present: PERRL - Neck Neck exam general surgery: Present: supple - Respiratory Respiratory exam: Present: CTAB - Cardiovascular Cardiovascular exam: Present: RRR, +S1, +S2 - GI/Abdominal GI/Abdominal exam: Present: normal bowel sounds, soft. Absent: tenderness - Extremities Exam Extremities exam: Present: calf tenderness (L), pedal edema (L>R) - Neurological Exam Additional comments: confused, agitated, flight of ideas/easily distracted, appears to answer questions appropriately - Skin Skin exam: Present: dry, intact, warm Internal Medicine: Result - Labs CBC & Chem 7: 02/02/17 03:56 02/02/17 03:56 Labs: Short CBC 02/02/17 Range/Units 03:56 WBC 8.5 (4.3-11.1) K/mcL Hgb 15.7 H (11.5-15.4) g/dL Hct 47.9 H (35.3-44.9) % Plt Count 183 (140-400) K/mcL Neutrophils # 6.0 (1.6-8.9) K/mcL BMP 02/02/17 03:56 Sodium 141 Potassium 3.3 L Chloride 104 Carbon Dioxide 24 BUN 15 Creatinine 0.67 Glucose 121 H Calcium 8.9 Cardiac Enzymes 02/01/17 02/02/17 Range/Units 20:19 03:56 Troponin I 0.48 H* 0.34 H* (0-0.03) ng/mL - ABG Interpretation ABG results: ABG ABG pH 7.45 pH Units (7.32-7.45) 02/01/17 14:58 ABG pCO2 41 mmHg (35-45) 02/01/17 14:58 ABG pO2 57 mmHg (85-104) L 02/01/17 14:58 ABG O2 Saturation 91 % (95-98) L 02/01/17 14:58 PT/INR, D-dimer PT 13.0 Seconds (9.4-12.1) H 02/01/17 14:32 Consult Discharge Plan - Plan Referrals: Ivan Bruno DO [Primary Care Provider] - <Aubrey Castellanos - Last Filed: 02/02/17 14:32> Date of Encounter: 02/02/17 - Assessment and plan (1) Acute respiratory failure with hypoxia Current Visit: Yes Status: Acute (2) Pulmonary embolism Current Visit: Yes Status: Acute Qualifiers: Pulmonary embolism type: other Chronicity: unspecified Acute cor pulmonale presence: without acute cor pulmonale Qualified Code(s): I26.99 - Other pulmonary embolism without acute cor pulmonale (3) Acute metabolic encephalopathy Current Visit: Yes Status: Acute (4) HTN (hypertension) Current Visit: Yes Status: Chronic Qualifiers: Hypertension type: essential hypertension Qualified Code(s): I10 - Essential (primary) hypertension (5) Diabetes Current Visit: Yes Status: Chronic Qualifiers: Diabetes mellitus type: type 2 Diabetes mellitus complication status: with neurologic complications Diabetes mellitus complication detail: with polyneuropathy Diabetes mellitus shelter insulin use: without shelter use Qualified Code(s): E11.42 - Type 2 diabetes mellitus with diabetic polyneuropathy - Constitutional Vitals: Temp Pulse Resp BP Pulse Ox 97.7 F 57 18 151/108 95 02/02/17 07:00 02/02/17 10:14 02/02/17 10:14 02/02/17 10:14 02/02/17 10:14 Internal Medicine: Result - Labs CBC & Chem 7: 02/02/17 03:56 02/02/17 03:56 Labs: Short CBC 02/02/17 Range/Units 03:56 WBC 8.5 (4.3-11.1) K/mcL Hgb 15.7 H (11.5-15.4) g/dL Hct 47.9 H (35.3-44.9) % Plt Count 183 (140-400) K/mcL Neutrophils # 6.0 (1.6-8.9) K/mcL BMP 02/02/17 03:56 Sodium 141 Potassium 3.3 L Chloride 104 Carbon Dioxide 24 BUN 15 Creatinine 0.67 Glucose 121 H Calcium 8.9 Cardiac Enzymes 02/01/17 02/02/17 Range/Units 20:19 03:56 Troponin I 0.48 H* 0.34 H* (0-0.03) ng/mL - ABG Interpretation ABG results: ABG ABG pH 7.45 pH Units (7.32-7.45) 02/01/17 14:58 ABG pCO2 41 mmHg (35-45) 02/01/17 14:58 ABG pO2 57 mmHg (85-104) L 02/01/17 14:58 ABG O2 Saturation 91 % (95-98) L 02/01/17 14:58 PT/INR, D-dimer PT 13.0 Seconds (9.4-12.1) H 02/01/17 14:32 - Attending Attestation I examined this patient and my medical decision-making was reviewed with the Resident Physician on 02/02/17. I agree with the documented findings, disposition and treatment plan as described except to the extent set forth below. Ms. Camacho is currently admitted for acute PE and acute metabolic encephalopathy. She is moderate to high risk due to potential for worsening respiratory and neuro status. Ms. Gomez is sitting in the chair. She is arguing with staff and her granddaughter. She wants to leave. She is having difficulty standing up. No fever or chills. Exam Alert. Agitated Mucus membranes dry Heart reg - tachy Lungs diminished but clear L leg with some edema I/P 1. Hypoxic resp failure 2. PE 3. Acute metabolic enceph - ? depression. Further diagnoses and plan as above.
[2017-02-02] MEDS ORDERED: hydrALAZINE 10 MG TABLET PO PRN (11:02)
[2017-02-02] MEDS ORDERED: Lisinopril 20 MG TABLET PO SCH (11:15)
--- NOTE | 2017-02-02 11:26 | Neurology - Consult Note ---
Date of Encounter: 02/02/17 Time of Encounter: 11:19 Assessment and Plan (1) Acute encephalopathy Current Visit: Yes Status: Acute The patient appears encephalopathic, likely related to ongoing medical conditions, especially respiratory hypoxia secondary to PE. May have baseline cognitive impairment due chronic vascular abnormalities evidenced on CT of head. Major concern would be bilateral ICA critical stenosis due to chronic hypointensity involving the fronto-parietal borderzone region that can supposedly cause proximal bilateral muscle weakness. Will recommend MRI of brain and carotid artery duplex study. Please continue medical and supportive care History of Present Illness Chief complaint: Behavioral changes, confusion and abnormal CT of head HPI: Ms. Gomez is a 66 year old female with PMH significant for HTN, DM, COPD, tobacco use, acute respiratory failure who developed weakness, SOB and found to have hypoxemia secondary to PE. Patient had a fall about 4 days ago, probably with loss of consciousness. Patient developed short of breath over the last few days and appears real weak and there was also some observation that she had slurred speech. Lives with her son. 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 CT of head revealed bilateral frontoparietal hypointensity in the area of borderzone pattern. Concerning for ICA critical stenosis. Currently patient is alert and oriented and able to tell me good story but appears weak and exhausted. Still has complaints of SOB but admits that she has been feeling better. Past Med Surg Social Fam HX - Past Medical History Medical history: diabetes, hypertension, other Psychiatric history: anxiety, depression - Social History Smoking Status: Former smoker Smokeless Tobacco Status: No Alcohol use: none Drug use: none Medications and Allergies Atorvastatin Calcium [Lipitor] 20 mg PO DAILY 02/01/17 [History] Diclofenac Sodium (24 HR) [Voltaren XR] 100 mg PO DAILY 02/01/17 [History] Escitalopram [Lexapro] 10 mg PO BID 02/01/17 [History] Fentanyl [Fentanyl] 1 patch TP Q72H 02/01/17 [History] Gabapentin [Neurontin] 600 mg PO TID 02/01/17 [History] Gemfibrozil [Lopid] 600 mg PO BID 02/01/17 [History] GlyBURIDE [GlyBURIDE] 5 mg PO BID 02/01/17 [History] Saxagliptin HCl/Metformin HCl [Kombiglyze Xr 2.5-1,000 mg Tab] 1 tab PO DAILY [History] Triamterene/Hydrochlorothiazid [Triamterene-Hctz 75-50 mg Tab] 1 tab PO QAM [History] Valsartan [Diovan] 160 mg PO DAILY 02/01/17 [History] Allergies acetaminophen [From [place]] Allergy (Verified 02/01/17 13:11) Hallucinating hydrocodone [From [place]] Allergy (Verified 02/01/17 13:11) Hallucinating All Systems: A 10-system review of systems was performed and is negative for pertinent findings except as documented above in the HPI. Physical Examination - Vital Signs Vital Signs: Initial Vital Signs Temp Pulse Resp BP Pulse Ox 98.7 F 72 18 205/119 78 02/01/17 14:09 02/01/17 14:09 02/01/17 14:09 02/01/17 14:09 02/01/17 14:09 - Constitutional General appearance: acutely ill, chronically ill - Neurologic Sensorimotor examination: intact (Grossly intact) Detailed motor examination: grossly full strength in all extremities (Giveaway weakness diffusely. 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 No signfiicant muscle fasciculations or atrophy) Motor examination - right side: 4/5: deltoids, biceps, triceps, wrist flexion, wrist extension, development director, hip flexors, tibialis Anterior, quadriceps, toe extension (EHL), plantarflexion Motor examination - left side: 4/5: deltoids, biceps, triceps, wrist flexion, wrist extension, hip flexors, development director, quadriceps, tibialis Anterior, toe extension (EHL), plantarflexion Detailed sensory examination: intact (Grossly intact) Reflexes: Biceps: 1+, Triceps: 1+, Brachioradialis: 1+, Patella: 1+, Achilles: 1 + Mental Status Examination: awake, alert, oriented to person, oriented to place, oriented to time, follows commands appropriately, answers questions appropriately, no agnosia, no aphasia, no aproxia Cranial nerve examination: PERRL, EOMI, visual ramirez intact, corneal reflexes brisk symmetrically, sensory to face intact, mastication intact, no facial asymmetry is present, no dysarthria, hearing is intact symmetrically, soft palate elevates bilaterally upon phonation, gag reflex intact, flexes SCM and trapezius muscles symmetrically with full power, tongue protrudes midline, no atrophy or facial fasiculations present Cerebellar examination: no gait ataxia (Gait not assessed due to weakness), no truncal ataxia, no difficulty with rapid alternating movements Results - Laboratory Findings CBC and BMP: 02/02/17 03:56 02/02/17 03:56 Abnormal lab findings: Abnormal lab results RBC 5.38 M/mcL (3.82-4.97) H 02/02/17 03:56 Hgb 15.7 g/dL (11.5-15.4) H 02/02/17 03:56 Hct 47.9 % (35.3-44.9) H 02/02/17 03:56 PT 13.0 Seconds (9.4-12.1) H 02/01/17 14:32 APTT 69.8 Seconds (26.0-36.0) H 02/02/17 03:56 ABG pO2 57 mmHg (85-104) L 02/01/17 14:58 ABG HCO3 28.5 mEQ/L (21-27) H 02/01/17 14:58 ABG Total CO2 29.8 mEq/L (20-26) H 02/01/17 14:58 ABG O2 Saturation 91 % (95-98) L 02/01/17 14:58 ABG Base Excess 4.1 mEq/L (-2.0 to 3.0) H 02/01/17 14:58 Potassium 3.3 mEq/L (3.5-4.5) L 02/02/17 03:56 Glucose 121 mg/dL (70-99) H 02/02/17 03:56 POC Glucose 121 (58-89) H 02/01/17 20:43 Magnesium 1.4 mg/dL (1.6-2.6) L 02/02/17 03:56 Total Bilirubin 3.9 mg/dL (0.2-1.2) H 02/01/17 14:32 Direct Bilirubin 1.0 mg/dL (0.0-0.5) H 02/01/17 14:32 Indirect Bilirubin 2.9 mg/dL (0.0-1.2) H 02/01/17 14:32 Troponin I 0.34 ng/mL (0-0.03) H* 02/02/17 03:56 B-Natriuretic Peptide 233 pg/mL (0-100) H 02/02/17 03:56 Urine Color [place] (Yellow) A 02/01/17 14:41 Ur Specific [place] > 1.030 (1.010-1.025) H 02/01/17 14:41 Urine Protein >=300 mg/dL (Neg-Trace) H 02/01/17 14:41 Urine Ketones 15 mg/dL (Negative) H 02/01/17 14:41 Urine Bilirubin Moderate (Negative) H 02/01/17 14:41 Urine Urobilinogen 2.0 mg/dL (Normal) H 02/01/17 14:41 Ur Leukocyte Esterase Trace (Negative) H 02/01/17 14:41 Urine Microscopic RBC 3-5 per hpf (0-3) H 02/01/17 14:41 Ur Squamous Epith Cells Many per lpf (None-Few) H 02/01/17 14:41 Consult Discharge Plan - Plan Referrals: ColopyIvan DO [Primary Care Provider] -
[2017-02-02] MEDS: *HR* FentaNYL PATCH 50 MCG PATCH TD SCH (11:53)
[2017-02-02] MEDS: Heparin 25,000 UNIT/500 ML D5W 25,000 UNIT/500 ML MLS IVC SCH (14:01)
[2017-02-02] MEDS: amLODIPine 5 MG TABLET PO SCH (15:47)
[2017-02-03] MEDS: Nystatin POWDER 30 GM BOTTLE TP SCH ×4 (00:19→20:43)
[2017-02-03 09:10] LABS: Basophils % 0.4 %; Eosinophils # 0.4 K/mcL (0.0-0.6); Eosinophils % 3.8 %; Hematocrit 49.1 % (35.3-44.9); Hemoglobin 16.5 g/dL (11.5-15.4); Immature Granulocytes % 0.3 % (0-4); Lymphocytes # 1.9 K/mcL (0.6-4.6); Lymphocytes % 19.4 %; Mean Corpuscular HGB Conc 33.6 g/dL (31.6-35.5); Mean Corpuscular Hemoglobin 30.1 pg (28.0-33.3); Mean Corpuscular Volume 89.4 fL (83.0-100.0); Mean Platelet Volume 11.2 fL (9.4-12.4); Monocytes # 0.6 K/mcL (0.0-1.3); Monocytes % 6.5 %; Neutrophils # 6.7 K/mcL (1.6-8.9); Platelet Count 190 K/mcL (140-400); Red Blood Count 5.49 M/mcL (3.82-4.97); Red Cell Distribution Width 14.5 % (11.5-14.5); Segmented Neutrophils % 69.6 %
[2017-02-03 09:21] LABS: BUN/Creatinine Ratio 11 (6-26); Blood Urea Nitrogen 8 mg/dL (7-20); Calcium 9.1 mg/dL (8.6-10.8); Carbon Dioxide 33 mEq/L (19-29); Chloride 100 mEq/L (98-109); Glucose 108 mg/dL (70-99); Osmolality,Calculated 293 (280-300); Potassium 3.2 mEq/L (3.5-4.5); Sodium 142 mEq/L (136-145); eGFR For African Americans > 60 (> 60); eGFR For Non-African Americans > 60 (> 60)
--- NOTE | 2017-02-03 09:21 | Electrocardiograph Report ---
[address] [place] [address] Test Date: 2017-02-01 Pat Name: Veronica Gomez Department: 105 Room: 2NE35 Gender: F Hand Decorator: : 1950 Requested By: Gustavo Moffett Order Number: [id number] Reading MD: Miguel Tirado MD Measurements Intervals [place] Rate: 63 P: 23 ME: 207 QRS: -89 QRSD: 106 T: -31 QT: 373 QTc: 380 Interpretive Statements SINUS RHYTHM MARKED LEFT AXIS DEVIATION POSSIBLE LATERAL MYOCARDIAL INFARCTION, OF INDETERMINATE AGE Poor R wave progression Electronically Signed On 02-03-2017 9:19:28 EDT by Miguel Tirado MD
--- NOTE | 2017-02-03 09:48 | Internal Med Progress Note ---
<Catherine Lockett - Last Filed: 02/03/17 09:46> Date of Encounter: 02/03/17 Time of Encounter: 09:48 - Assessment and plan (1) Pulmonary embolism Current Visit: Yes Status: Acute Assessment and plan: Denies shortness of breath at rest; however, needing supplemental oxygen to maintain oxygen saturation greater than 90%. Elevated troponin with peak 0.48. Denies chest pain. Normal echo. Heparin drip. Qualifiers: Pulmonary embolism type: other Chronicity: unspecified Acute cor pulmonale presence: without acute cor pulmonale Qualified Code(s): I26.99 - Other pulmonary embolism without acute cor pulmonale (2) Acute respiratory failure with hypoxia Current Visit: Yes Status: Acute Assessment and plan: 2* pulmonary embolus Continue supplemental oxygen (does not use oxygen at home) Satting 95% on 5 L (3) Acute encephalopathy Current Visit: Yes Status: Acute Assessment and plan: Confusion, agitation, flight of ideas/easy distractibility Patient's granddaughter states recent since her fall Patient had 50mcg fentanyl patches x 2 on her buttock that were removed in the ED. Neurology consult, appreciate recommendations PT, OT, social work consult for Friday morning; appreciate recommendations 02/02 Patient is much more calm today, MRI scan this morning -fentanyl patch 50mcg was restarted -lexapro restarted (home med) (4) DVT (deep venous thrombosis) Current Visit: Yes Status: Ruled-out Assessment and plan: doppler negative Qualifiers: DVT location: lower extremity Laterality: left Chronicity: acute Qualified Code(s): I82.402 - Acute embolism and thrombosis of unspecified deep veins of left lower extremity (5) HTN (hypertension) Current Visit: Yes Status: Chronic Assessment and plan: start norvasc 5 mg hydralzine 10 mg q6 PRN continue home medications Qualifiers: Hypertension type: essential hypertension Qualified Code(s): I10 - Essential (primary) hypertension (6) Diabetes Current Visit: Yes Status: Chronic Assessment and plan: accuchecks and sliding scale Qualifiers: Diabetes mellitus type: type 2 Diabetes mellitus complication status: with neurologic complications Diabetes mellitus complication detail: with polyneuropathy Diabetes mellitus usp insulin use: without usp use Qualified Code(s): E11.42 - Type 2 diabetes mellitus with diabetic polyneuropathy - Subjective Interval history: Patient seen and examined. Calm, answers questions mostly appropriately. - Constitutional Vitals: Temp Pulse Resp BP Pulse Ox 97.9 F 63 15 168/88 95 02/03/17 07:00 02/03/17 07:00 02/03/17 07:00 02/03/17 07:00 02/03/17 07:00 General appearance: Present: A&O X 3, no acute distress, obese - Head Head exam: Present: atraumatic, normocephalic - Eye Eye exam: Present: PERRL, conjuntiva pink, sclera anicteric Pupils: Present: PERRL - Neck Neck exam general surgery: Present: supple - Respiratory Respiratory exam: Present: CTAB - Cardiovascular Cardiovascular exam: Present: RRR, +S1, +S2 - GI/Abdominal GI/Abdominal exam: Present: soft. Absent: tenderness - Extremities Exam Extremities exam: Present: warm. Absent: pedal edema - Neurological Exam Neurological exam: Present: alert, oriented X3 Additional comments: answers questions but takes a minute to think about her answer, also she took two tries to correctly answer what holiday it was yesterday, answering first and then . - Skin Skin exam: Present: dry, intact, warm Internal Medicine: Result - Labs CBC & Chem 7: 02/03/17 08:56 02/03/17 08:56 Labs: Short CBC 02/03/17 Range/Units 08:56 WBC 9.6 (4.3-11.1) K/mcL Hgb 16.5 H (11.5-15.4) g/dL Hct 49.1 H (35.3-44.9) % Plt Count 190 (140-400) K/mcL Neutrophils # 6.7 (1.6-8.9) K/mcL BMP 02/03/17 08:56 Sodium 142 Potassium 3.2 L Chloride 100 Carbon Dioxide 33 H BUN 8 Creatinine 0.71 Glucose 108 H Calcium 9.1 - ABG Interpretation ABG results: ABG ABG pH 7.45 pH Units (7.32-7.45) 02/01/17 14:58 ABG pCO2 41 mmHg (35-45) 02/01/17 14:58 ABG pO2 57 mmHg (85-104) L 02/01/17 14:58 ABG O2 Saturation 91 % (95-98) L 02/01/17 14:58 PT/INR, D-dimer PT 13.0 Seconds (9.4-12.1) H 02/01/17 14:32 Consult Discharge Plan - Plan Referrals: Ivan Bruno DO [Primary Care Provider] - <Aubrey Castellanos - Last Filed: 02/03/17 17:25> Date of Encounter: 02/03/17 - Assessment and plan (1) Acute respiratory failure with hypoxia Current Visit: Yes Status: Acute (2) Pulmonary embolism Current Visit: Yes Status: Acute Qualifiers: Pulmonary embolism type: other Chronicity: unspecified Acute cor pulmonale presence: without acute cor pulmonale Qualified Code(s): I26.99 - Other pulmonary embolism without acute cor pulmonale (3) Acute metabolic encephalopathy Current Visit: Yes Status: Acute (4) HTN (hypertension) Current Visit: Yes Status: Chronic Qualifiers: Hypertension type: essential hypertension Qualified Code(s): I10 - Essential (primary) hypertension (5) Diabetes Current Visit: Yes Status: Chronic Qualifiers: Diabetes mellitus type: type 2 Diabetes mellitus complication status: with neurologic complications Diabetes mellitus complication detail: with polyneuropathy Diabetes mellitus technician terminal and repeater insulin use: without technician terminal and repeater use Qualified Code(s): E11.42 - Type 2 diabetes mellitus with diabetic polyneuropathy - Constitutional Vitals: Temp Pulse Resp BP Pulse Ox 97.9 F 63 15 168/88 95 02/03/17 07:00 02/03/17 07:00 02/03/17 07:00 02/03/17 07:00 02/03/17 09:00 Internal Medicine: Result - Labs CBC & Chem 7: 02/03/17 08:56 02/03/17 08:56 Labs: Short CBC 02/03/17 Range/Units 08:56 WBC 9.6 (4.3-11.1) K/mcL Hgb 16.5 H (11.5-15.4) g/dL Hct 49.1 H (35.3-44.9) % Plt Count 190 (140-400) K/mcL Neutrophils # 6.7 (1.6-8.9) K/mcL BMP 02/03/17 08:56 Sodium 142 Potassium 3.2 L Chloride 100 Carbon Dioxide 33 H BUN 8 Creatinine 0.71 Glucose 108 H Calcium 9.1 - ABG Interpretation ABG results: ABG ABG pH 7.45 pH Units (7.32-7.45) 02/01/17 14:58 ABG pCO2 41 mmHg (35-45) 02/01/17 14:58 ABG pO2 57 mmHg (85-104) L 02/01/17 14:58 ABG O2 Saturation 91 % (95-98) L 02/01/17 14:58 PT/INR, D-dimer PT 13.0 Seconds (9.4-12.1) H 02/01/17 14:32 - Attending Attestation I examined this patient and my medical decision-making was reviewed with the Resident Physician on 02/03/17. I agree with the documented findings, disposition and treatment plan as described except to the extent set forth below. Ms. Gomez is currently admitted for acute PE on anticoagulation and acute encephalopathy. She remains moderate to high risk due to potential for worsening respiratory and neuro status. Ms. Gomez is less agitated today. She is not arguing with everyone today. Less dyspnea. No CP. Exam Alert. Comfortable Heart reg Lungs no wheeze Edema about the same I/P 1. Acute PE - on hepain drip. Xarelto greater than $100/month. Will start coumadin tonight and anticipate transitioning to Lovenox/coumadin at discharge. 2. Acute encephalopathy Further diagnoses and plan as above.
--- NOTE | 2017-02-03 10:39 | Neurology Progress Note ---
Date of Encounter: 02/03/17 Time of Encounter: 10:37 Assessment and Plan (1) Acute encephalopathy Current Visit: Yes Status: Acute Improved as medical conditions improving. Has baseline, chronic weakness and behavioral changes, and questionable bilateral fronto-parietal watershed focal hypointensity on CT of head. carotid artery duplex completed and is waiting for priliminary reading. Also await for MRI of brain. Please continue medical and supportive care Subjective Principal diagnosis: Weakness and behavioral issues and abnormal CT of head Interval history: Patient seen and examined. She is feeling better in terms of breathing difficulty. She is laying in bed, no acute distress. currently fully oriented to time and place. No behavioral issues. Objective - Constitutional Vitals: Temp Pulse Resp BP Pulse Ox 97.9 F 63 15 168/88 95 02/03/17 07:00 02/03/17 07:00 02/03/17 07:00 02/03/17 07:00 02/03/17 07:00 - Neurological Exam Sensorimotor examination: Present: intact (Grossly intact) Motor Examination: Present: grossly full strength in all extremities (Still some giveaway weakness, hand cocoa roaster better when encouraged, may be some left hand sledger weakness) Motor examination - right side: 5/5: deltoids, biceps, triceps, wrist flexion, wrist extension, sledger, hip flexors, tibialis Anterior, quadriceps, toe extension (EHL), plantarflexion Motor examination - left side: 5/5: deltoids, biceps, triceps, wrist flexion, wrist extension, hip flexors, sledger, quadriceps, tibialis Anterior, toe extension (EHL), plantarflexion Sensation intact: Present: intact (Grossly intact) Mental Status Examination: Present: awake, alert, oriented to person, oriented to place, oriented to time, follows commands appropriately, answers questions appropriately, no agnosia, no aphasia, no aproxia Cranial nerve examination: Present: PERRL, EOMI, visual ramirez intact, corneal reflexes brisk symmetrically, sensory to face intact, mastication intact, no facial asymmetry is present, no dysarthria, hearing is intact symmetrically, soft palate elevates bilaterally upon phonation, gag reflex intact, flexes SCM and trapezius muscles symmetrically with full power, tongue protrudes midline, no atrophy or facial fasiculations present Cerebellar examination: Present: no gait ataxia (Gait not assessed due to weakness), no truncal ataxia, no difficulty with rapid alternating movements Results - Laboratory Findings CBC and BMP: 02/03/17 08:56 02/03/17 08:56 Abnormal lab findings: Abnormal lab results RBC 5.49 M/mcL (3.82-4.97) H 02/03/17 08:56 Hgb 16.5 g/dL (11.5-15.4) H 02/03/17 08:56 Hct 49.1 % (35.3-44.9) H 02/03/17 08:56 PT 13.0 Seconds (9.4-12.1) H 02/01/17 14:32 APTT 79.3 Seconds (26.0-36.0) H 02/03/17 04:40 ABG pO2 57 mmHg (85-104) L 02/01/17 14:58 ABG HCO3 28.5 mEQ/L (21-27) H 02/01/17 14:58 ABG Total CO2 29.8 mEq/L (20-26) H 02/01/17 14:58 ABG O2 Saturation 91 % (95-98) L 02/01/17 14:58 ABG Base Excess 4.1 mEq/L (-2.0 to 3.0) H 02/01/17 14:58 Potassium 3.2 mEq/L (3.5-4.5) L 02/03/17 08:56 Carbon Dioxide 33 mEq/L (19-29) H 02/03/17 08:56 Glucose 108 mg/dL (70-99) H 02/03/17 08:56 POC Glucose 135 (58-89) H 02/02/17 19:43 Magnesium 1.4 mg/dL (1.6-2.6) L 02/02/17 03:56 Total Bilirubin 3.9 mg/dL (0.2-1.2) H 02/01/17 14:32 Direct Bilirubin 1.0 mg/dL (0.0-0.5) H 02/01/17 14:32 Indirect Bilirubin 2.9 mg/dL (0.0-1.2) H 02/01/17 14:32 Troponin I 0.34 ng/mL (0-0.03) H* 02/02/17 03:56 B-Natriuretic Peptide 233 pg/mL (0-100) H 02/02/17 03:56 Urine Color [place] (Yellow) A 02/01/17 14:41 Ur Specific [place] > 1.030 (1.010-1.025) H 02/01/17 14:41 Urine Protein >=300 mg/dL (Neg-Trace) H 02/01/17 14:41 Urine Ketones 15 mg/dL (Negative) H 02/01/17 14:41 Urine Bilirubin Moderate (Negative) H 02/01/17 14:41 Urine Urobilinogen 2.0 mg/dL (Normal) H 02/01/17 14:41 Ur Leukocyte Esterase Trace (Negative) H 02/01/17 14:41 Urine Microscopic RBC 3-5 per hpf (0-3) H 02/01/17 14:41 Ur Squamous Epith Cells Many per lpf (None-Few) H 02/01/17 14:41 Consult Discharge Plan - Plan Referrals: ColopyIvan DO [Primary Care Provider] -
[2017-02-03] MEDS: Insulin LISPRO 300 UNITS/3 ML VIAL SQ SCH ×4 (11:45→21:55)
[2017-02-03] MEDS: Valsartan 160 MG TABLET PO SCH (11:46)
[2017-02-03] MEDS: Gabapentin 300 MG CAPSULE PO SCH ×3 (11:46→20:38)
[2017-02-03] MEDS: amLODIPine 5 MG TABLET PO SCH (11:47)
--- NOTE | 2017-02-03 14:12 | Venous Imaging Report ---
LE Venous Duplex Patient Name:Veronica Gomez Order Number:[id number] Procedure Date:02/02/2017 Date:8Age:66 yrs Gender:Female Location:[facility] Room #: 2NE35 Hang Gliding Instructor:Laila Heard, JENNIFER, RVT Referring MD:Catherine Lockett DO network manager:Ivan Bruno DO Reading MD:Shorty March MD Primary Indications:Pulmonary Embolism, Suspected DVT, Swelling in Left Lower Extremity Secondary Indications: Risk Factors Yes/No Hx of DVT No Hx of Chemotherapy No Trauma to Veins No Recent Surgery No Anticoagulants Yes Impressions: Normal left lower extremity deep and superficial venous exam. Normal contralateral common femoral vein. Recommendations: Test completed on 02/02/2017 at 1:30:54 pm. Findings Prior Study: No prior study available for comparison. Lower Extremity Venous Duplex Side Vein Compress Spontaneous Flow Augment Diameter (cm) Depth (cm) Left Distal Iliac Normal Yes Phasic Yes Left Common Femoral Normal Yes Phasic Yes Left Superficial Femoral Normal Yes Phasic Yes Left Popliteal Normal Yes Phasic Yes Left Posterior Tibial Normal Yes Phasic Yes Left Peroneal Normal Yes Phasic Yes Left Great Saphenous Normal Yes Phasic Yes Left Lesser Saphenous Normal Yes Phasic Yes Updated by Shorty March MD on 02/03/2017 2:04:50 PM electronically signed on 02/03/2017 2:05:10 PM with status of Final
--- NOTE | 2017-02-03 14:52 | Carotid Imaging Report ---
Carotid Duplex Patient Name:Veronica Gomez Order Number:[id number] Procedure Date:02/02/2017 Date:8Age:66 yrs Gender:Female Lt BP:149 / 97 mmHg Rt.BP:158 / 100 mmHgHeart Rate: Location:[facility] Room #: 2NE35 Chiller Operator:Laila Heard RDCS, TAMICA Referring MD:Catherine Lockett DO electroencephalogram technologist:Ivan Bruno DO Reading MD:Shorty March MD Primary Indications:Bilateral Frontal Lobe Abnormalities Risk Factors Yes/No Hypertension Yes Diabetes Yes Hypercholesterolemia No Hx of TIA No Hx of CVA No Smoker Previous Yes Impressions: The bilateral carotid arteries have minimal plaque throughout. Recommendations: After imaging the patient returned home. Test completed on 02/02/2017 at 1:40:00 pm. Critical findings reported to Note in EMR note in emr at 2:05:14 pm on 02/02/2017 by Laila Heard RDCS, TAMICA. Findings Carotid Duplex: Right: There is nonstenotic plaque in the right bifurcation. There is smooth heterogeneous plaque. There is antegrade spectral Doppler flow patterns in the right vertebral artery. Left: There is nonstenotic plaque in the left bifurcation. There is smooth heterogeneous plaque. There is antegrade spectral Doppler flow patterns in the left vertebral artery. Prior Study: No prior study available for comparison. Carotid Results Right PSV EDV Assessment Proximal CCA 70 12 Normal Mid CCA 62 12 Normal Distal CCA 53 13 Normal Bifurcation 38 8 Non Stenotic Plaque Proximal ICA 62 12 Normal Mid ICA 41 10 Normal Distal ICA 42 10 Normal ECA 70 Normal Vertebral Artery 32 8 Antegrade Flow Left PSV EDV Assessment Proximal CCA 69 11 Normal Mid CCA 66 8 Normal Distal CCA 46 11 Normal Bifurcation 34 7 Non Stenotic Plaque Proximal ICA 47 11 Normal Mid ICA 62 15 Normal Distal ICA 66 14 Normal ECA 56 6 Normal Vertebral Artery 30 9 Antegrade Flow Ratio's Right ICA/CCA Ratio: 1.00 ICA/CCA Values: 62/62 Left ICA/CCA Ratio: 1.00 ICA/CCA Values: 66/66 Updated by Shorty March MD on 02/03/2017 2:28:13 PM electronically signed on 02/03/2017 2:47:29 PM with status of Final
[2017-02-03] MEDS ORDERED: Magnesium Sulfate 2 GM in D5% in Water 100 ML IVPB ONE (16:08)
[2017-02-03] MEDS ORDERED: Warfarin perPT PO PRN ×2 (18:00→19:37)
[2017-02-03] MEDS ORDERED: *HR* LORazepam 2 MG/ML VIAL IVP ONE (18:02)
[2017-02-03] MEDS: traMADol 50 MG TABLET PO PRN (18:05)
[2017-02-03 19:10] LABS: INR 1.2; Prothrombin Time 13.3 Seconds (9.4-12.1)
[2017-02-03] MEDS: *HR* Warfarin 5 MG TABLET PO SCH (21:55)
[2017-02-03] MEDS: *HR* Enoxaparin 100 MG/ML SYRINGE SQ SCH (23:39)
[2017-02-04 05:58] LABS: Basophils % 0.5 %; Eosinophils # 0.4 K/mcL (0.0-0.6); Hematocrit 51.9 % (35.3-44.9); Hemoglobin 17.3 g/dL (11.5-15.4); Immature Granulocytes % 0.3 % (0-4); Lymphocytes # 1.8 K/mcL (0.6-4.6); Lymphocytes % 20.2 %; Mean Corpuscular HGB Conc 33.3 g/dL (31.6-35.5); Mean Corpuscular Hemoglobin 29.8 pg (28.0-33.3); Mean Corpuscular Volume 89.5 fL (83.0-100.0); Mean Platelet Volume 11.4 fL (9.4-12.4); Monocytes # 0.7 K/mcL (0.0-1.3); Monocytes % 7.4 %; Neutrophils # 5.8 K/mcL (1.6-8.9); Platelet Count 197 K/mcL (140-400); Red Cell Distribution Width 14.5 % (11.5-14.5); Segmented Neutrophils % 66.6 %
[2017-02-04 06:00] LABS: INR 1.2
[2017-02-04 06:03] LABS: Activated Partial Thrombo Time 35.1 Seconds (26.0-36.0)
[2017-02-04 06:16] LABS: BUN/Creatinine Ratio 16 (6-26); Blood Urea Nitrogen 11 mg/dL (7-20); Calcium 9.3 mg/dL (8.6-10.8); Carbon Dioxide 30 mEq/L (19-29); Chloride 100 mEq/L (98-109); Glucose 114 mg/dL (70-99); Magnesium 2.1 mg/dL (1.6-2.6); Osmolality,Calculated 290 (280-300); Potassium 3.7 mEq/L (3.5-4.5); Sodium 140 mEq/L (136-145); eGFR For African Americans > 60 (> 60); eGFR For Non-African Americans > 60 (> 60)
[2017-02-04] MEDS: *HR* Enoxaparin 100 MG/ML SYRINGE SQ SCH ×2 (08:18→17:30)
[2017-02-04] MEDS: Insulin LISPRO 300 UNITS/3 ML VIAL SQ SCH ×4 (08:20→23:25)
[2017-02-04] MEDS: amLODIPine 5 MG TABLET PO SCH (08:37)
[2017-02-04] MEDS: Gabapentin 300 MG CAPSULE PO SCH ×3 (08:37→19:52)
[2017-02-04] MEDS: Valsartan 160 MG TABLET PO SCH (08:37)
[2017-02-04] MEDS: Nystatin POWDER 30 GM BOTTLE TP SCH ×3 (08:43→19:54)
[2017-02-04] MEDS ORDERED: *HR* LORazepam 2 MG/ML VIAL IVP PRN (09:22)
--- NOTE | 2017-02-04 10:08 | Internal Med Progress Note ---
<Catherine Lockett - Last Filed: 02/04/17 10:25> Date of Encounter: 02/04/17 Time of Encounter: 10:06 - Assessment and plan (1) Pulmonary embolism Current Visit: Yes Status: Acute Assessment and plan: Denies shortness of breath at rest; however, needing supplemental oxygen to maintain oxygen saturation greater than 90%. Elevated troponin with peak 0.48. Denies chest pain. Normal echo. Heparin drip stopped 02/03, lovenox and coumadin started. Qualifiers: Pulmonary embolism type: other Chronicity: unspecified Acute cor pulmonale presence: without acute cor pulmonale Qualified Code(s): I26.99 - Other pulmonary embolism without acute cor pulmonale (2) Acute respiratory failure with hypoxia Current Visit: Yes Status: Acute Assessment and plan: 2* pulmonary embolus Continue supplemental oxygen (does not use oxygen at home) (3) Acute encephalopathy Current Visit: Yes Status: Acute Assessment and plan: 02/01 Confusion, agitation, flight of ideas/easy distractibility Patient's granddaughter states recent since her fall Patient had 50mcg fentanyl patches x 2 on her buttock that were removed in the ED. Neurology consult, appreciate recommendations PT, OT, social work consult for Friday morning; appreciate recommendations 02/02 Patient is much more calm today, MRI scan this morning -fentanyl patch 50mcg was restarted -lexapro restarted (home med) 02/03 Patient refused MRI scan yesterday due to anxiety. Will retry today with ativan. (4) DVT (deep venous thrombosis) Current Visit: Yes Status: Ruled-out Assessment and plan: doppler negative Qualifiers: DVT location: lower extremity Laterality: left Chronicity: acute Qualified Code(s): I82.402 - Acute embolism and thrombosis of unspecified deep veins of left lower extremity (5) HTN (hypertension) Current Visit: Yes Status: Chronic Assessment and plan: increase norvasc 10 mg hydralzine 10 mg q6 PRN continue home medications (valsartan, triamterene/HCTZ) Qualifiers: Hypertension type: essential hypertension Qualified Code(s): I10 - Essential (primary) hypertension (6) Diabetes Current Visit: Yes Status: Chronic Assessment and plan: accuchecks and sliding scale Qualifiers: Diabetes mellitus type: type 2 Diabetes mellitus complication status: with neurologic complications Diabetes mellitus complication detail: with polyneuropathy Diabetes mellitus alf insulin use: without alf use Qualified Code(s): E11.42 - Type 2 diabetes mellitus with diabetic polyneuropathy - Subjective Interval history: Patient seen and examined. No chest pain or shortness of breath. - Constitutional Vitals: Temp Pulse Resp BP Pulse Ox 97.6 F 61 14 163/98 94 02/04/17 07:00 02/04/17 07:00 02/04/17 07:00 02/04/17 07:00 02/04/17 08:49 General appearance: Present: A&O X 3, no acute distress, obese, answers questions appropriately - Head Head exam: Present: atraumatic, normocephalic - Eye Eye exam: Present: PERRL, conjuntiva pink, sclera anicteric Pupils: Present: PERRL - ENT ENT exam: Present: mucous membranes moist - Neck Neck exam general surgery: Present: supple - Respiratory Respiratory exam: Present: CTAB - Cardiovascular Cardiovascular exam: Present: RRR, +S1, +S2 - GI/Abdominal GI/Abdominal exam: Present: normal bowel sounds, soft. Absent: tenderness - Extremities Exam Extremities exam: Present: warm. Absent: pedal edema, tenderness - Neurological Exam Neurological exam: Present: alert, oriented X3 Additional comments: takes time to come up with words at times - Skin Skin exam: Present: dry, intact, warm Internal Medicine: Result - Labs CBC & Chem 7: 02/04/17 05:33 02/04/17 05:33 Labs: Short CBC 02/04/17 Range/Units 05:33 WBC 8.8 (4.3-11.1) K/mcL Hgb 17.3 H (11.5-15.4) g/dL Hct 51.9 H (35.3-44.9) % Plt Count 197 (140-400) K/mcL Neutrophils # 5.8 (1.6-8.9) K/mcL BMP 02/04/17 05:33 Sodium 140 Potassium 3.7 Chloride 100 Carbon Dioxide 30 H BUN 11 Creatinine 0.70 Glucose 114 H Calcium 9.3 - ABG Interpretation ABG results: ABG ABG pH 7.45 pH Units (7.32-7.45) 02/01/17 14:58 ABG pCO2 41 mmHg (35-45) 02/01/17 14:58 ABG pO2 57 mmHg (85-104) L 02/01/17 14:58 ABG O2 Saturation 91 % (95-98) L 02/01/17 14:58 PT/INR, D-dimer PT 13.0 Seconds (9.4-12.1) H 02/04/17 05:33 Consult Discharge Plan - Plan Referrals: Ivan Bruno, [Primary Care Provider] - <Aubrey Castellanos - Last Filed: 02/04/17 17:25> Date of Encounter: 02/04/17 - Assessment and plan (1) Acute respiratory failure with hypoxia Current Visit: Yes Status: Acute (2) Pulmonary embolism Current Visit: Yes Status: Acute Qualifiers: Pulmonary embolism type: other Chronicity: unspecified Acute cor pulmonale presence: without acute cor pulmonale Qualified Code(s): I26.99 - Other pulmonary embolism without acute cor pulmonale (3) Cerebrovascular accident (CVA) due to embolism of left middle cerebral artery Current Visit: Yes Status: Acute Assessment and plan: Agrees to rehab at discharge. (4) Acute metabolic encephalopathy Current Visit: Yes Status: Acute (5) HTN (hypertension) Current Visit: Yes Status: Chronic Qualifiers: Hypertension type: essential hypertension Qualified Code(s): I10 - Essential (primary) hypertension (6) Diabetes Current Visit: Yes Status: Chronic Qualifiers: Diabetes mellitus type: type 2 Diabetes mellitus complication status: with neurologic complications Diabetes mellitus complication detail: with polyneuropathy Diabetes mellitus intermodal dispatcher insulin use: without intermodal dispatcher use Qualified Code(s): E11.42 - Type 2 diabetes mellitus with diabetic polyneuropathy - Constitutional Vitals: Temp Pulse Resp BP Pulse Ox 97.5 F L 75 19 154/111 92 02/04/17 15:00 02/04/17 15:00 02/04/17 15:00 02/04/17 15:00 02/04/17 15:00 Internal Medicine: Result - Labs CBC & Chem 7: 02/04/17 05:33 02/04/17 05:33 Labs: Short CBC 02/04/17 Range/Units 05:33 WBC 8.8 (4.3-11.1) K/mcL Hgb 17.3 H (11.5-15.4) g/dL Hct 51.9 H (35.3-44.9) % Plt Count 197 (140-400) K/mcL Neutrophils # 5.8 (1.6-8.9) K/mcL BMP 02/04/17 05:33 Sodium 140 Potassium 3.7 Chloride 100 Carbon Dioxide 30 H BUN 11 Creatinine 0.70 Glucose 114 H Calcium 9.3 - ABG Interpretation ABG results: ABG ABG pH 7.45 pH Units (7.32-7.45) 02/01/17 14:58 ABG pCO2 41 mmHg (35-45) 02/01/17 14:58 ABG pO2 57 mmHg (85-104) L 02/01/17 14:58 ABG O2 Saturation 91 % (95-98) L 02/01/17 14:58 PT/INR, D-dimer PT 13.0 Seconds (9.4-12.1) H 02/04/17 05:33 - Impressions Impressions Brain MRI 02/04/17 10:08 IMPRESSION: Near nondiagnostic exam due to motion artifact. However, apparent zone of restricted diffusion within the right parietal lobe likely reflects an acute infarct. Correlate with neurologic exam. The findings were sent to the Radiology Results Communication Center at 5:00 pm on 02/04/2017to be communicated to a licensed caregiver. D/ / Tarun Sloan MD / Tarun Sloan MD Interpreting Provider: Tarun Sloan MD - Attending Attestation I examined this patient and my medical decision-making was reviewed with the Resident Physician on 02/04/17. I agree with the documented findings, disposition and treatment plan as described except to the extent set forth below. Ms. Gomez is currently admitted for acute PE. Today her MRI has shown a CVA. She is high risk due to potential for worsening neuro complications. Ms. Gomez is awake and interactive. She is answering questions appropriately. Denies pain. No dyspnea but still requires oxygen. Agrees to rehab. Exam Alert. Comfortable Mucus membranes moist Heart reg Lungs clear at this time I/P 1. Acute PE - on heparin/coumadin. Can convert to Lovenox/coumadin tomorrow. 2. Acute CVA - rehab 3. Depression Further diagnoses and plan as above.
[2017-02-04] MEDS: *HR* LORazepam 2 MG/ML VIAL IVP PRN (16:01)
[2017-02-04] MEDS: *HR* Warfarin 5 MG TABLET PO SCH (17:30)
--- NOTE | 2017-02-04 18:09 | Neurology Progress Note ---
Date of Encounter: 02/04/17 Time of Encounter: 18:07 Assessment and Plan (1) Acute encephalopathy Current Visit: Yes Status: Acute Much improved (2) CVA (cerebral vascular accident) Current Visit: Yes Status: Acute Patient developed right parietal infarct involving the posterior branch of MCA territory with cortical involvement, etiology could be embolic or thromboembolic in nature. Patient's carotid artery duplex returned normal. Echocardigraphy showed normal LVEF of 55-60%, No valvular disease, no PFO, no regional wall motion abnormality. In terms of treatment since the patient will be on anticoagulation therapy she is well covered in terms of CVA secondary prevention. If on Coumadin or Xarelto , aspirin is no longer needed from stroke perspective. Please continue medical and supportive care. Qualifiers: CVA mechanism: occlusion Precerebral and cerebral artery: middle cerebral artery Laterality of affected vessel: right Qualified Code(s): I63.511 - Cerebral infarction due to unspecified occlusion or stenosis of right middle cerebral artery Subjective Principal diagnosis: Weakness and behavioral issues and abnormal CT of head Interval history: Patient seen and examined. She continues to improve, breathing more effortless now. No significant discomforts. has some mild weakness to left leg, but able to wiggle her toes. MRI of brain showed acute infarct at the right parietal lobe , mid sized without edema. The study can not be completed due to movements and claustrophobia. Objective - Constitutional Vitals: Temp Pulse Resp BP Pulse Ox 97.5 F L 75 19 154/111 92 02/04/17 15:00 02/04/17 15:00 02/04/17 15:00 02/04/17 15:00 02/04/17 15:00 - Neurological Exam Sensorimotor examination: Present: intact (Grossly intact) Motor examination - right side: 5/5: deltoids, biceps, triceps, wrist flexion, wrist extension, autocad designer, hip flexors, tibialis Anterior, quadriceps, toe extension (EHL), plantarflexion Motor examination - left side: 4/5: hip flexors, autocad designer, quadriceps, tibialis Anterior, 5/5: deltoids, biceps, triceps, wrist flexion, wrist extension, toe extension (EHL), plantarflexion Sensation intact: Present: intact (Grossly intact) Posture: Present: other (None) Reflexes: Biceps: 1+, Triceps: 1+, Brachioradialis: 1+, Patella: 1+, Achilles: 1 + Mental Status Examination: Present: awake, alert, oriented to person, oriented to place, oriented to time, follows commands appropriately, answers questions appropriately, no agnosia, no aphasia, no aproxia Cranial nerve examination: Present: PERRL, EOMI, visual ramirez intact, corneal reflexes brisk symmetrically, sensory to face intact, mastication intact, no facial asymmetry is present, no dysarthria, hearing is intact symmetrically, soft palate elevates bilaterally upon phonation, gag reflex intact, flexes SCM and trapezius muscles symmetrically with full power, tongue protrudes midline, no atrophy or facial fasiculations present Cerebellar examination: Present: no gait ataxia (Gait not assessed due to weakness), no truncal ataxia, no difficulty with rapid alternating movements Results - Laboratory Findings CBC and BMP: 02/04/17 05:33 02/04/17 05:33 Abnormal lab findings: Abnormal lab results RBC 5.80 M/mcL (3.82-4.97) H 02/04/17 05:33 Hgb 17.3 g/dL (11.5-15.4) H 02/04/17 05:33 Hct 51.9 % (35.3-44.9) H 02/04/17 05:33 PT 13.0 Seconds (9.4-12.1) H 02/04/17 05:33 ABG pO2 57 mmHg (85-104) L 02/01/17 14:58 ABG HCO3 28.5 mEQ/L (21-27) H 02/01/17 14:58 ABG Total CO2 29.8 mEq/L (20-26) H 02/01/17 14:58 ABG O2 Saturation 91 % (95-98) L 02/01/17 14:58 ABG Base Excess 4.1 mEq/L (-2.0 to 3.0) H 02/01/17 14:58 Carbon Dioxide 30 mEq/L (19-29) H 02/04/17 05:33 Glucose 114 mg/dL (70-99) H 02/04/17 05:33 POC Glucose 132 (58-89) H 02/03/17 20:52 Total Bilirubin 3.9 mg/dL (0.2-1.2) H 02/01/17 14:32 Direct Bilirubin 1.0 mg/dL (0.0-0.5) H 02/01/17 14:32 Indirect Bilirubin 2.9 mg/dL (0.0-1.2) H 02/01/17 14:32 Troponin I 0.34 ng/mL (0-0.03) H* 02/02/17 03:56 B-Natriuretic Peptide 233 pg/mL (0-100) H 02/02/17 03:56 Urine Color [place] (Yellow) A 02/01/17 14:41 Ur Specific [place] > 1.030 (1.010-1.025) H 02/01/17 14:41 Urine Protein >=300 mg/dL (Neg-Trace) H 02/01/17 14:41 Urine Ketones 15 mg/dL (Negative) H 02/01/17 14:41 Urine Bilirubin Moderate (Negative) H 02/01/17 14:41 Urine Urobilinogen 2.0 mg/dL (Normal) H 02/01/17 14:41 Ur Leukocyte Esterase Trace (Negative) H 02/01/17 14:41 Urine Microscopic RBC 3-5 per hpf (0-3) H 02/01/17 14:41 Ur Squamous Epith Cells Many per lpf (None-Few) H 02/01/17 14:41 Consult Discharge Plan - Plan Referrals: Colopy,Ivan Quesada DO [Primary Care Provider] -
[2017-02-04] MEDS: traMADol 50 MG TABLET PO PRN (19:52)
[2017-02-04] MEDS: Aspirin 81 MG TAB.CHEW PO SCH (19:52)
[2017-02-05 04:59] LABS: INR 1.6; Prothrombin Time 17.5 Seconds (9.4-12.1)
[2017-02-05 05:04] LABS: Basophils # 0.1 K/mcL (0.0-0.2); Basophils % 0.6 %; Eosinophils # 0.5 K/mcL (0.0-0.6); Eosinophils % 5.7 %; Hemoglobin 17.7 g/dL (11.5-15.4); Immature Granulocytes % 0.4 % (0-4); Lymphocytes % 24.3 %; Mean Corpuscular HGB Conc 32.1 g/dL (31.6-35.5); Mean Corpuscular Volume 90.3 fL (83.0-100.0); Mean Platelet Volume 11.3 fL (9.4-12.4); Monocytes # 0.8 K/mcL (0.0-1.3); Neutrophils # 4.9 K/mcL (1.6-8.9); Platelet Count 206 K/mcL (140-400); Red Blood Count 6.11 M/mcL (3.82-4.97); Red Cell Distribution Width 14.1 % (11.5-14.5)
[2017-02-05 05:05] LABS: Hematocrit 55.2 % (35.3-44.9)
[2017-02-05 05:16] LABS: BUN/Creatinine Ratio 26 (6-26); Blood Urea Nitrogen 19 mg/dL (7-20); Calcium 9.4 mg/dL (8.6-10.8); Carbon Dioxide 29 mEq/L (19-29); Chloride 101 mEq/L (98-109); Glucose 112 mg/dL (70-99); Osmolality,Calculated 291 (280-300); eGFR For African Americans > 60 (> 60); eGFR For Non-African Americans > 60 (> 60)
[2017-02-05 05:33] LABS: Sodium 139 mEq/L (136-145)
[2017-02-05] MEDS: *HR* Enoxaparin 100 MG/ML SYRINGE SQ SCH (06:05)
[2017-02-05] MEDS: traMADol 50 MG TABLET PO PRN ×2 (07:56→21:40)
[2017-02-05] MEDS: Aspirin 81 MG TAB.CHEW PO SCH (07:57)
[2017-02-05] MEDS: Gabapentin 300 MG CAPSULE PO SCH ×3 (07:57→21:41)
[2017-02-05] MEDS: amLODIPine 5 MG TABLET PO SCH (07:58)
[2017-02-05] MEDS: Valsartan 160 MG TABLET PO SCH (07:58)
[2017-02-05] MEDS: Insulin LISPRO 300 UNITS/3 ML VIAL SQ SCH ×4 (07:58→21:43)
--- NOTE | 2017-02-05 08:54 | Discharge Summary ---
<Catherine Lockett - Last Filed: 02/05/17 10:06> Date of Encounter: 02/05/17 Time of Encounter: 08:49 - Discharge Diagnosis (1) Pulmonary embolism Priority: Primary Status: Acute Qualifiers: Pulmonary embolism type: other Chronicity: unspecified Acute cor pulmonale presence: without acute cor pulmonale Qualified Code(s): I26.99 - Other pulmonary embolism without acute cor pulmonale (2) Acute respiratory failure with hypoxia Priority: Primary Status: Acute (3) Acute encephalopathy Priority: Primary Status: Acute (4) DVT (deep venous thrombosis) Priority: Secondary Status: Ruled-out Comments: ruled out Qualifiers: DVT location: lower extremity Laterality: left Chronicity: acute Qualified Code(s): I82.402 - Acute embolism and thrombosis of unspecified deep veins of left lower extremity (5) HTN (hypertension) Priority: Secondary Status: Chronic Qualifiers: Hypertension type: essential hypertension Qualified Code(s): I10 - Essential (primary) hypertension (6) Diabetes Priority: Secondary Status: Chronic Qualifiers: Diabetes mellitus type: type 2 Diabetes mellitus complication status: with neurologic complications Diabetes mellitus complication detail: with polyneuropathy Diabetes mellitus usp insulin use: without dedicated intermodal truck driver use Qualified Code(s): E11.42 - Type 2 diabetes mellitus with diabetic polyneuropathy - Discharge Medications Prescriptions: Amlodipine [Norvasc] 10 mg PO DAILY #30 tablet Aspirin 81 mg PO DAILY #30 tab.chew Nystatin POWDER [Nystop] 1 appl TP TID #2 bottle Rivaroxaban [Xarelto] 15 mg PO DAILY #21 tablet Home Medications: Atorvastatin Calcium [Lipitor] 20 mg PO DAILY 02/01/17 [History] Diclofenac Sodium (24 HR) [Voltaren XR] 100 mg PO DAILY 02/01/17 [History] Escitalopram [Lexapro] 10 mg PO BID 02/01/17 [History] Fentanyl 1 patch TP Q72H 02/01/17 [History] Gabapentin [Neurontin] 600 mg PO TID 02/01/17 [History] Gemfibrozil [Lopid] 600 mg PO BID 02/01/17 [History] GlyBURIDE 5 mg PO BID 02/01/17 [History] Saxagliptin HCl/Metformin HCl [Kombiglyze Xr 2.5-1,000 mg Tab] 1 tab PO DAILY [History] Triamterene/Hydrochlorothiazid [Triamterene-Hctz 75-50 mg Tab] 1 tab PO QAM [History] Valsartan [Diovan] 160 mg PO DAILY 02/01/17 [History] Amlodipine [Norvasc] 10 mg PO DAILY #30 tablet 02/05/17 [Rx] Aspirin 81 mg PO DAILY #30 tab.chew 02/05/17 [Rx] Nystatin POWDER [Nystop] 1 appl TP TID #2 bottle 02/05/17 [Rx] Rivaroxaban [Xarelto] 15 mg PO DAILY #21 tablet 02/05/17 [Rx] Allergies/Adverse Reactions: Allergies acetaminophen [From [place]] Allergy (Verified 02/01/17 13:11) Hallucinating hydrocodone [From [place]] Allergy (Verified 02/01/17 13:11) Hallucinating Date of admission: 02/02/17 14:33 Primary care physician: Ivan Bruno Consults: 02/04/17 17:25 Consult to Speech Therapy [CONS] Routine Comment: Evaluate, develop and implement POC Reason for Consult: CVA Call Completed: No Discharging clinician: Catherine Lockett Anticipated date of discharge: 02/05/17 - Patient Status Disposition: Transfer Inpatient Rehab Fac Condition: Fair Functional capacity at discharge: uses cane/walker Overall status at discharge: patient is not back to baseline - Discharge Instructions Follow Up With: Ivan Bruno, [Primary Care Provider] - - Diet and Activity Activity: ambulate only with your walker, as per physical therapy Diet: diabetic diet Interval History: Patient seen and examined. Worried about going to rehabilitation because she does not have any clothes here. She also states she has been laying in bed for several days. Hospital course: Ms. Gomez is a 66 year old female past medical history of hypertension diabetes who presented to the ED after being referred from urgent care for dyspnea. She was brought to the urgent care and was found to be satting in the 80s. She fell 1-2 weeks prior to arrival, questionable syncope. She does not use home oxygen. Her initial oxygen level in the ER was 78. She was started on supplemental oxygen via nasal cannula. She denies shortness of breath, but has required supplement oxygen throughout her stay. CTA showed pulmonary embolism. She had elevated troponin without ST elevations on EKG. She was diagnosed with an STEMI, although this could be secondary to the PE. She was started on a heparin drip to cover both. The night of admission and the following day the patient was acting erratic. Head CT was ordered. Head CT showed no acute abnormalities, but there were areas of low attenuation in both frontal lobes suggesting sequelae of remote ischemia. Neurology was consult. And due to her presentation decided to order MRI and carotid ultrasounds. Current ultrasound showed minimal ischemia. MRI of the brain showed acute infarct in the right parietal lobe. She is being discharged to [facility] for rehabilitation. She will be anticoagulated on Xarelto due to patient family preference. - Time Spent with Patient Total time spent providing and/or coordinating discharge services: - Constitutional Vitals: Temp Pulse Resp BP Pulse Ox 98.2 F 65 18 150/85 93 02/05/17 07:42 02/05/17 07:42 02/05/17 07:42 02/05/17 07:42 02/05/17 07:42 General appearance: Present: A&O X 3, no acute distress, answers questions appropriately - Head Head exam: Present: atraumatic, normocephalic - Eye Eye exam: Present: PERRL, conjuntiva pink, sclera anicteric Pupils: Present: PERRL - ENT ENT exam: Present: mucous membranes moist - Neck Neck exam general surgery: Present: supple - Respiratory Respiratory exam: Present: CTAB - Cardiovascular Cardiovascular exam: Present: RRR, +S1, +S2 - GI/Abdominal GI/Abdominal exam: Present: soft. Absent: tenderness - Extremities Exam Extremities exam: Present: warm. Absent: pedal edema, tenderness - Neurological Exam Neurological exam: Present: alert, CN II-XII intact, oriented X3 - Skin Skin exam: Present: dry, intact, warm <Aubrey Castellanos - Last Filed: 02/05/17 13:13> Date of Encounter: 02/05/17 - Discharge Diagnosis (1) Acute respiratory failure with hypoxia Priority: Primary Status: Acute (2) Pulmonary embolism Priority: Primary Status: Acute Qualifiers: Pulmonary embolism type: other Chronicity: unspecified Acute cor pulmonale presence: without acute cor pulmonale Qualified Code(s): I26.99 - Other pulmonary embolism without acute cor pulmonale (3) Cerebrovascular accident (CVA) due to embolism of left middle cerebral artery Priority: Primary Status: Acute Comments: Pt not TPA candidate due to timing of CVA. (4) Acute metabolic encephalopathy Priority: Secondary Status: Resolved (5) HTN (hypertension) Priority: Secondary Status: Chronic Qualifiers: Hypertension type: essential hypertension Qualified Code(s): I10 - Essential (primary) hypertension (6) Diabetes Priority: Secondary Status: Chronic Qualifiers: Diabetes mellitus type: type 2 Diabetes mellitus complication status: with neurologic complications Diabetes mellitus complication detail: with polyneuropathy Diabetes mellitus dedicated intermodal truck driver insulin use: without usp use Qualified Code(s): E11.42 - Type 2 diabetes mellitus with diabetic polyneuropathy (7) Depression, reactive Priority: Secondary Status: Chronic - Notes to Outpatient Provider Neuro recommends dedicated intermodal truck driver anticoagulation or loop recorder. ? embolic CVA and she has PE. Date of admission: 02/02/17 14:33 Primary care physician: vIan Bruno Consults: 02/04/17 17:25 Consult to Speech Therapy [CONS] Routine Comment: Evaluate, develop and implement POC Reason for Consult: CVA Call Completed: No Hospital course: Ms. Gomez is a 66 year old female - Time Spent with Patient Total time spent providing and/or coordinating discharge services: 39min - Constitutional Vitals: Temp Pulse Resp BP Pulse Ox 98.2 F 65 18 150/85 93 02/05/17 07:42 02/05/17 07:42 02/05/17 07:42 02/05/17 07:42 02/05/17 08:00 - Stroke Onset of Symptoms Date: 01/30/17 Symptom Onset Unknown: Yes Has Patient Been Evaluated by Rehab for Stroke: Yes - Attending Attestation I examined this patient and my medical decision-making was reviewed with the Resident Physician on 02/05/17. I agree with the documented findings, disposition and treatment plan as described except to the extent set forth below. Ms. Gomez is feeling OK today. She is concerned about leaving and having no clothes. Denies pain. No fever. Vitals stable. Exam Alert. Comfortable Heart reg No wheeze I/P 1. Acute PE - Xarelto at discharge. Recommend usp anticoagulation due to acute CVA, unprovoked PE. 2. CVA 3. Depression Further diagnoses and plan as above.
--- NOTE | 2017-02-05 08:57 | Physician Discharge Referral ---
<Catherine Lockett Maxine - Last Filed: 02/05/17 08:55> ExtendedCare Referral Info Transfer To: [facility] Provider in Charge: clay castellanos Provider in Charge after Transfer: Other Institutional Level of Care: Skilled - Diagnosis (1) Pulmonary embolism Priority: Primary Status: Acute (2) Acute respiratory failure with hypoxia Priority: Primary Status: Acute (3) Acute encephalopathy Priority: Primary Status: Acute (4) DVT (deep venous thrombosis) Priority: Secondary Status: Ruled-out (5) HTN (hypertension) Priority: Secondary Status: Chronic (6) Diabetes Priority: Secondary Status: Chronic - Transfer Medications Prescriptions: Amlodipine [Norvasc] 10 mg PO DAILY #30 tablet Aspirin 81 mg PO DAILY #30 tab.chew Nystatin POWDER [Nystop] 1 appl TP TID #2 bottle Rivaroxaban [Xarelto] 15 mg PO DAILY #21 tablet Home Medications: Atorvastatin Calcium [Lipitor] 20 mg PO DAILY 02/01/17 [History] Diclofenac Sodium (24 HR) [Voltaren XR] 100 mg PO DAILY 02/01/17 [History] Escitalopram [Lexapro] 10 mg PO BID 02/01/17 [History] Fentanyl 1 patch TP Q72H 02/01/17 [History] Gabapentin [Neurontin] 600 mg PO TID 02/01/17 [History] Gemfibrozil [Lopid] 600 mg PO BID 02/01/17 [History] GlyBURIDE 5 mg PO BID 02/01/17 [History] Saxagliptin HCl/Metformin HCl [Kombiglyze Xr 2.5-1,000 mg Tab] 1 tab PO DAILY [History] Triamterene/Hydrochlorothiazid [Triamterene-Hctz 75-50 mg Tab] 1 tab PO QAM [History] Valsartan [Diovan] 160 mg PO DAILY 02/01/17 [History] Amlodipine [Norvasc] 10 mg PO DAILY #30 tablet 02/05/17 [Rx] Aspirin 81 mg PO DAILY #30 tab.chew 02/05/17 [Rx] Nystatin POWDER [Nystop] 1 appl TP TID #2 bottle 02/05/17 [Rx] Rivaroxaban [Xarelto] 15 mg PO DAILY #21 tablet 04/19/17 [Rx] Allergies/Adverse Reactions: Allergies acetaminophen [From [place]] Allergy (Verified 02/01/17 13:11) Hallucinating hydrocodone [From [place]] Allergy (Verified 02/01/17 13:11) Hallucinating - Respiratory Orders Oxygen / L per min (titrate to maintain spO2 > 92%) Smoking Cessation: Smoking cessation has been advised. For more information, call the [employer] Quit Line at 0-610-BQQF-NOW. - Mobility Orders Chair, Ambulate (with PT) - Rehabiliation Orders Rehab Potential: Fair (fair to good) Rehab Orders: Evaluation for Physical Therapy, Evaluation for Occupational Therapy - Diet Orders No Concentrated Sweets CERTIFICATION: I certify that the transfer of the above named patient to an Extended Care Facility is necessary for the continuing treatment of the diagnosis listed. The above information is true and accurate reflection of patient's current condition. Confidential - Redisclosure prohibited without a patient's written consent. <Clay Castellanos - Last Filed: 02/05/17 11:31> - Diagnosis (1) Acute respiratory failure with hypoxia Priority: Primary Status: Acute (2) Pulmonary embolism Priority: Primary Status: Acute (3) Cerebrovascular accident (CVA) due to embolism of left middle cerebral artery Priority: Primary Status: Acute (4) Acute metabolic encephalopathy Priority: Secondary Status: Resolved (5) HTN (hypertension) Priority: Secondary Status: Chronic (6) Diabetes Priority: Secondary Status: Chronic - Respiratory Orders Smoking Cessation: Smoking cessation has been advised. For more information, call the [email or web address] Line at 2-793-VSWG-NOW. - Lab Orders Lab Orders: 2 Step Mantoux Test per State regulation - Ancillary Orders May use pressure relief devices daily prn, May consult with Dentist, Foot Doctor, Foreman/Project Manager PRN - Advance Directives Code Status: Full Code - Treatments Skin tear care topically daily PRN per policy, May check for fecal impaction rectally daily PRN, Fleet enema rectally every other day PRN cleansing purposes CERTIFICATION: I certify that the transfer of the above named patient to an Extended Care Facility is necessary for the continuing treatment of the diagnosis listed. The above information is true and accurate reflection of patient's current condition. Confidential - Redisclosure prohibited without a patient's written consent.
[2017-02-05] MEDS: Nystatin POWDER 30 GM BOTTLE TP SCH ×3 (09:03→21:43)
[2017-02-05] MEDS: *HR* FentaNYL PATCH 50 MCG PATCH TD SCH (12:35)
[2017-02-05] MEDS: *HR* LORazepam 1 MG TABLET PO PRN (14:54)
--- NOTE | 2017-02-05 17:56 | Event Note ---
Date of Encounter: 02/05/17 Time of Encounter: 15:00 Pt at this time does not want to leave to go to SNF. She appears to nearly be in panic about going. She was encouraged but continued to be quite stressed about it. Will hold d/c and plan for early tomorrow AM.
[2017-02-05] MEDS: *HR* Rivaroxaban 15 MG TABLET PO SCH (21:40)
[2017-02-06 06:00] LABS: Basophils # 0.1 K/mcL (0.0-0.2); Basophils % 0.5 %; Eosinophils # 0.5 K/mcL (0.0-0.6); Eosinophils % 5.4 %; Hematocrit 54.2 % (35.3-44.9); Hemoglobin 17.7 g/dL (11.5-15.4); Immature Granulocytes % 0.4 % (0-4); Lymphocytes # 2.6 K/mcL (0.6-4.6); Lymphocytes % 26.2 %; Mean Corpuscular HGB Conc 32.7 g/dL (31.6-35.5); Mean Corpuscular Hemoglobin 30.2 pg (28.0-33.3); Mean Corpuscular Volume 92.3 fL (83.0-100.0); Mean Platelet Volume 11.4 fL (9.4-12.4); Monocytes # 1.1 K/mcL (0.0-1.3); Monocytes % 10.9 %; Neutrophils # 5.7 K/mcL (1.6-8.9); Platelet Count 218 K/mcL (140-400); Red Blood Count 5.87 M/mcL (3.82-4.97); Red Cell Distribution Width 14.6 % (11.5-14.5); Segmented Neutrophils % 56.6 %
[2017-02-06 06:15] LABS: Calcium 9.4 mg/dL (8.6-10.8); Potassium 4.2 mEq/L (3.5-4.5)
[2017-02-06 08:09] VITALS: BP 146/98
[2017-02-06] MEDS: Insulin LISPRO 300 UNITS/3 ML VIAL SQ SCH (08:42)
[2017-02-06] MEDS: Aspirin 81 MG TAB.CHEW PO SCH (08:42)
[2017-02-06] MEDS: *HR* LORazepam 1 MG TABLET PO PRN (08:42)
[2017-02-06] MEDS: amLODIPine 5 MG TABLET PO SCH (08:42)
[2017-02-06] MEDS: Gabapentin 300 MG CAPSULE PO SCH (08:42)
[2017-02-06] MEDS: *HR* Rivaroxaban 15 MG TABLET PO SCH (08:42)
[2017-02-06] MEDS: Valsartan 160 MG TABLET PO SCH (08:42)
[2017-02-06] MEDS: Nystatin POWDER 30 GM BOTTLE TP SCH (08:43)
[2017-02-06 09:14] LABS: BUN/Creatinine Ratio 29 (6-26); Blood Urea Nitrogen 31 mg/dL (7-20); Calcium 9.4 mg/dL (8.6-10.8); Carbon Dioxide 28 mEq/L (19-29); Chloride 103 mEq/L (98-109); Glucose 110 mg/dL (70-99); Osmolality,Calculated 297 (280-300); Potassium 4.2 mEq/L (3.5-4.5); Sodium 140 mEq/L (136-145); eGFR For African Americans > 60 (> 60); eGFR For Non-African Americans 52 (> 60)
--- NOTE | 2017-02-06 09:27 | Event Note ---
<Catherine Lockettty - Last Filed: 02/06/17 09:25> Date of Encounter: 02/06/17 Time of Encounter: 09:25 Patient refused to go to rehabilitation yesterday. She was extremely anxious. Patient is agreeable to going to rehabilitation today. She was medically discharged yesterday. Patient seen and examined. Alert and oriented. Heart regular rate and rhythm no murmurs. Lungs clear to auscultation bilaterally. Abdomen soft nontender. Extremities warm no pedal edema. <Aubrey Castellanos - Last Filed: 02/06/17 15:16> Date of Encounter: 02/06/17 Ms. Gomez is ready to leave today. She has had some slight epistaxis but no overt hemorrhage. Exam Alert. Comfortable Heart reg No wheeze Abd soft No edema I/P 1. PE 2. Hypoxic resp failure acute 3. CVA D/C to SNF today.
== END 2017-02-06 13:10 | DRG 175 ==
LOC: 2NENU 14:07 → EMEROO 14:07 → 2NENU 17:52
PROVIDERS: ADMIT Internal Medicine Endocrinology, Diabetes & Metabolism; ATTEND Internal Medicine